=== PATIENT | male | born 2000 | race Caucasian/White ===

== ENCOUNTER 2020-04-14 18:17 | Observation (INO) ==
[2020-04-14] MEDS ORDERED: ONDANSETRON INJ 2 MG/ML 2 ML VIAL IV STA (20:01)
[2020-04-14] MEDS ORDERED: SODIUM CHLORIDE 0.9% 1000ML 1,000 ML IV ONE (20:01)
[2020-04-14 20:15] LABS: Basophils # (auto) 0.01 K/uL (0-0.2); Basophils % (auto) 0.1 %; Eosinophils # (auto) 0.18 K/uL (0-0.5); Eosinophils % (auto) 2.3 %; Hematocrit (blood only) 38.3 % (42-52); Hemoglobin 13.6 g/dL (14.0-18.0); Immature Granulocytes # (auto) 0.03 K/uL (0.00-0.02); Immature Granulocytes % (auto) 0.4 %; Lymphocytes # (auto) 1.47 K/uL (1.2-3.4); Lymphocytes % (auto) 19.2 %; Mean Corpuscular Hemoglobin 31.3 pg (25-34); Mean Corpuscular Hgb Conc 35.5 g/dL (32-36); Mean Platelet Volume 9.3 fL (7.4-10.4); Monocytes # (auto) 1.05 K/uL (0.11-0.59); Monocytes % (auto) 13.7 %; Neutrophils # (auto) 4.93 K/uL (1.4-6.5); Neutrophils % (auto) 64.3 %; Platelet Count 208 K/uL (130-400); RDW Standard Deviation 38.6 fL (36.4-46.3); Red Blood Count 4.35 M/uL (4.7-6.1); White Blood Count 7.67 K/uL (4.8-10.8)
--- NOTE | 2020-04-14 20:34 | CT Scan Report ---
CT head/brain wo con CLINICAL HISTORY: 19 years-old Male with seizure. Acute seizure like activity TECHNIQUE: Multiple axial CT images of the head were obtained without contrast. A dose lowering tech nique was utilized adhering to the principles of ALARA. CT DOSE: 767.83 mGy.cm COMPARISON: None. FINDINGS: No acute intracranial hemorrhage, midline shift, intracranial mass, hydrocephalus, territorial ischem ia or abnormal extra-axial collection. The calvarium is intact. The paranasal sinuses, mastoid air cells, and middle ear cavities are clear . IMPRESSION: No acute intracranial abnormality. ACT 112: Negative or not required by law. The above report was generated using voice recognition software. It may contain grammatical, syntax o r spelling errors. Electronically signed by: Riley Cheung M.D. 04/14/2020 8:33 PM
[2020-04-14 20:35] LABS: Albumin Level 4.3 gm/dl (3.4-5.0); BUN Creatinine Ratio 10.2 (10-20); Bilirubin Direct 0.2 mg/dl (0-0.2); Calcium 9.1 mg/dl (8.5-10.1); Creatinine Clr Calc Pharmacy 71.5 ml/min; Est GFR (African American) 55.1; Est GFR (Non-African American) 47.5; Potassium 3.8 mmol/L (3.5-5.1)
[2020-04-14 20:38] LABS: Bilirubin,Total 0.7 mg/dl (0.2-1)
[2020-04-14] MEDS: SODIUM CHLORIDE 0.9% 1000ML 1,000 ML IV SCH (22:26)
[2020-04-15 00:28] LABS: Amphetamines+Metham, Urine Neg (Neg); Barbiturates, Urine Neg (Neg); Benzodiazepine, Urine Neg (Neg); Cocaine, Urine Neg (Neg); MDMA (Ecstacy), Urine Neg (Neg); Methadone, Urine Neg (Neg); Opiate, Urine Neg (Neg); Phencyclidine, Urine Neg (Neg)
--- NOTE | 2020-04-15 01:15 | Emergency Department Note ---
History of Present Illness General Chief complaint: Nausea Stated complaint: HAD SEIZURE OVER THE WEEKEND, HAS HAD NAUSEA SINCE Time Seen by Provider: 04/14/20 19:54 History of Present Illness Provider complaint: Nausea and vomiting Onset (ago): day(s) 3 Location: abdomen Severity: mild Associated symptoms: + nausea/vomiting; no chest pain, no fever/chills, no headaches and no rash 19-year-old male presents emergency department for nausea and vomiting. Patient states he has a history of seizure disorder and is on Trileptal. He states that Monday he had 2 seizures. He denies hitting his head. He denies any excessive alcohol intake. Denies any illicit drug use. Patient states that since he had seizures she has been feeling increasingly nauseous. Girlfriend states that the patient is vomited 20 times since Monday. Patient denies any hematemesis, coffee-ground emesis, bilious vomiting, hematochezia, melena, dysuria, hematuria, chest pain, difficulty breathing, loss of taste or smell, or loss of consciousness. Patient states he was diagnosed with a seizure disorder earlier this year and sees a neurologist in [place] which is where he is from. Home Medications Home Medications Medication Instructions Recorded Confirmed Type fluoxetine 30 mg PO HS 09/03/19 04/14/20 History atomoxetine 60 mg PO HS 04/14/20 04/14/20 History oxcarbazepine 600 mg PO BID 04/14/20 04/14/20 History Allergies Allergy/AdvReac Type Severity Reaction Status Date / Time No Known Allergies Allergy Verified 04/14/20 21:56 Past Med/Surg History Medical History Seizure Surgical History No pertinent past surgical history Family History Other No pertinent family history in first degree relatives Social History Smoking Status: Current some day smoker Preferred Language: Djiboutian Feels Safe at Home: Yes Review of Systems A total of 10 systems reviewed and were otherwise negative Physical Exam Vital Signs Vital Signs - 24 hr 04/14/20 18:24 04/14/20 20:44 04/14/20 22:22 Temperature 36.4 C L Temperature Source Oral Pulse Rate 78 Pulse Rate [Apical] 63 59 L Respiratory Rate 20 18 18 Respiratory Effort / Characteristics Non-Labored Non-Labored Non-Labored Respiratory Depth Normal Normal Normal Blood Pressure 121/66 Blood Pressure [Left Arm] 143/63 H 139/92 Blood Pressure Mean 84 Blood Pressure Mean [Left Arm] 89 107 Blood Pressure Position [Left Arm] Pulse Oximetry 100 100 100 Oxygen Delivery Method Room Air Room Air Room Air Sepsis Recent Fever Within 48 Hours No Sepsis New/Unexplained Change in Mental Status No Sepsis Action Taken by Nursing No Action Required 04/14/20 23:01 04/14/20 23:30 04/15/20 00:29 Temperature Temperature Source Pulse Rate Pulse Rate [Apical] 58 L 58 L 61 Respiratory Rate 18 14 20 Respiratory Effort / Characteristics Non-Labored Spontaneous Non-Labored Respiratory Depth Normal Normal Blood Pressure Blood Pressure [Left Arm] 129/83 129/83 135/70 Blood Pressure Mean Blood Pressure Mean [Left Arm] 98 98 91 Blood Pressure Position [Left Arm] Sitting Sitting Pulse Oximetry 100 100 100 Oxygen Delivery Method Room Air Room Air Room Air Sepsis Recent Fever Within 48 Hours Sepsis New/Unexplained Change in Mental Status Sepsis Action Taken by Nursing Physical Exam GENERAL: He is oriented to person, place, and time. He appears well-developed and well-nourished. He does not appear distressed. HENT: Exam performed. - Head: Normocephalic and atraumatic. - Right Ear: External ear normal. No mastoid tenderness. - Left Ear: External ear normal. No mastoid tenderness. - Mouth/Throat: The oropharynx is clear and moist. No trismus in the jaw. No dental abscesses or uvula swelling. No oropharyngeal exudate or tonsillar ab scesses. EYES: Conjunctivae and EOM are normal. Pupils are equal, round, and reactive to light. Right eye exhibits no discharge. Left eye exhibits no discharge. No scleral icterus. NECK: Normal range of motion. Neck supple. No JVD present. No spinous process tenderness present. No carotid bruit present. No rigidity. No tracheal deviation and normal range of motion present. No Brudzinski's sign and no Kernig's sign noted. CV: Normal rate, regular rhythm, normal heart sounds and intact distal pulses. There is no peripheral edema. Palpable radial pulses bue. PULM/CHEST: Effort normal and breath sounds normal. No respiratory distress. No stridor. He has no wheezes. He has no rales. - Chest Wall: He exhibits no tenderness. ABD: The abdomen is soft. Bowel sounds are normal. He has no distension. No mass is present. There is no tenderness. There is no rebound, no guarding, no Eid's sign and no tenderness at McBurney's point. Rovsig negative. MUSC/SKEL: Normal range of motion. There is no peripheral edema, tenderness or deformity. LYMPH: No cervical adenopathy. NEURO: He is alert and oriented to person, place, and time. He has normal strength. No cranial nerve deficit or sensory deficit. Coordination and gait normal. GCS eye subscore is 4. GCS verbal subscore is 5. GCS motor subscore is 6. Cerebellar tests wnl. SKIN: Skin is warm and dry. He is not diaphoretic. PSYCH: He has a normal mood and affect. Behavior is normal. Judgment and thought content normal. Course Course 1953: The patient was evaluated in room B3. A complete history and physical exam was performed. 2217: Vital signs stable. Imaging within normal limits. Labs show acute kidney injury. Patient will be admitted to the [facility] service. Dr. Godoy notified. Administered Medications Sodium Chloride (Nss 1000ml) 1,000 mls @ 125 mls/hr IV .Q8H CHARLENE Stop: 05/14/20 22:29 Last Admin: 04/14/20 22:26 Dose: 125 mls/hr Documented by: [id number] Discontinued Medications Sodium Chloride (Nss 1000ml) 1,000 mls @ 999 mls/hr IV .Q1H1M ONE Stop: 04/14/20 21:01 Last Infusion: 04/14/20 21:15 Dose: 0 mls/hr Documented by: [id number] Admin: 04/14/20 20:15 Dose: 999 mls/hr Documented by: [id number] Ondansetron HCl (Ondansetron Inj 2 Mg/Ml 2 Ml Vial) 4 mg IV NOW STA Stop: 04/14/20 20:02 Last Admin: 04/14/20 20:15 Dose: 4 mg Documented by: [id number] Ondansetron HCl (Ondansetron Inj 2 Mg/Ml 2 Ml Vial) Confirm Administered Dose 4 mg .ROUTE .STK-MED ONE Stop: 04/15/20 01:17 Last Admin: 04/15/20 01:18 Dose: 4 mg Documented by: Medical Decision Making Laboratory Data Result diagrams: 04/14/20 20:09 04/14/20 20:09 Lab Results 04/14/20 04/14/20 04/15/20 Range/Units 20:09 20:09 00:03 WBC 7.67 (4.8-10.8) K/uL RBC 4.35 L (4.7-6.1) M/uL Hgb 13.6 L (14.0-18.0) g/dL Hct 38.3 L (42-52) % MCV 88.0 (80-100) fL MCH 31.3 (25-34) pg MCHC 35.5 (32-36) g/dL RDW Std Deviation 38.6 (36.4-46.3) fL RDW Coeff of Radha 12.0 (11.5-14.5) % Plt Count 208 (130-400) K/uL MPV 9.3 (7.4-10.4) fL Immature Gran % (Auto) 0.4 % Neut % (Auto) 64.3 % Lymph % (Auto) 19.2 % [place] % (Auto) 13.7 % Eos % (Auto) 2.3 % Baso % (Auto) 0.1 % Neut # (Auto) 4.93 (1.4-6.5) K/uL Lymph # (Auto) 1.47 (1.2-3.4) K/uL [place] # (Auto) 1.05 H (0.11-0.59) K/uL Eos # (Auto) 0.18 (0-0.5) K/uL Baso # (Auto) 0.01 (0-0.2) K/uL Immature Gran # (Auto) 0.03 H (0.00-0.02) K/uL Sodium 140 (136-145) mmol/L Potassium 3.8 (3.5-5.1) mmol/L Chloride 108 H (98-107) mmol/L Carbon Dioxide 24 (21-32) mmol/L Anion Gap 8.0 (3-11) BUN 20 H (7-18) mg/dl Creatinine 1.97 H (0.6-1.4) mg/dl Est Cr Clr Drug Dosing 71.5 ml/min Est GFR ( Amer) 55.1 Est GFR (Non-Af Amer) 47.5 BUN/Creatinine Ratio 10.2 (10-20) Glucose 91 (70-99) mg/dl Calcium 9.1 (8.5-10.1) mg/dl Total Bilirubin 0.7 (0.2-1) mg/dl Direct Bilirubin 0.2 (0-0.2) mg/dl AST 19 (15-37) U/L ALT 21 (12-78) U/L Alkaline Phosphatase 57 (45-117) U/L Total Creatine Kinase 334 H (39-308) U/L Total Protein 8.0 (6.4-8.2) gm/dl Albumin 4.3 (3.4-5.0) gm/dl Lipase 109 (73-393) U/L Urine Opiates Screen Neg (Neg) Ur Methadone, Qual Neg (Neg) Urine Barbiturates Neg (Neg) Ur Phencyclidine (PCP) Neg (Neg) U Amphetamin/Meth Scrn Neg (Neg) MDMA (Ecstasy) Screen Neg (Neg) U Benzodiazepines Scrn Neg (Neg) Ur Cocaine Metabolite Neg (Neg) U Marijuana (THC) Screen Pos H (Neg) Imaging Data Radiologist's Impression: CT head/brain wo con CLINICAL HISTORY: 19 years-old Male with seizure. Acute seizure like activity TECHNIQUE: Multiple axial CT images of the head were obtained without contrast. A dose lowering technique was utilized adhering to the principles of ALARA. CT DOSE: 767.83 mGy.cm COMPARISON: None. FINDINGS: No acute intracranial hemorrhage, midline shift, intracranial mass, hydrocephalus, territorial ischemia or abnormal extra-axial collection. The calvarium is intact. The paranasal sinuses, mastoid air cells, and middle ear cavities are clear. IMPRESSION: No acute intracranial abnormality. ACT 112: Negative or not required by law. The above report was generated using voice recognition software. It may contain grammatical, syntax or spelling errors. Electronically signed by: Riley Cheung M.D. 04/14/2020 8:33 PM Dictated: 04/14/202031 Transcribed: 04/14/202031 [facility] Narrative Vital signs stable. Imaging within normal limits. Labs show acute kidney injury. Patient will be admitted to the [facility] service. Dr. Godoy notified. Impression & Plan DANIEL (acute kidney injury), Seizure Discharge Plan Visit Data Chief Complaint: Nausea Stated Complaint: HAD SEIZURE OVER THE WEEKEND, HAS HAD NAUSEA SINCE ED Provider: Ze He Discharge Problem: DANIEL (acute kidney injury), Seizure Patient Disposition: Being Evaluated by Hospitalist Forms Stand Alone Forms: My [facility] Prescriptions Prescriptions: No Action fluoxetine 10 mg Capsule 30 mg PO HS RF: 0 oxcarbazepine 600 mg tablet 600 mg PO BID RF: 0 atomoxetine 60 mg capsule 60 mg PO HS RF: 0 Referrals Referrals: [place] [Primary Care Provider] -
[2020-04-15] MEDS ORDERED: ONDANSETRON INJ 2 MG/ML 2 ML VIAL ONE (01:16)
[2020-04-15] MEDS ORDERED: ONDANSETRON INJ 2 MG/ML 2 ML VIAL IV PRN (01:35)
[2020-04-15] MEDS: OXcarbazepine 150 MG TABLET PO SCH ×3 (03:17→20:42)
--- NOTE | 2020-04-15 03:19 | History & Physical Report ---
Date of Service April 15, 2020 The patient was seen and examined on 04/14/2020 Assessment & Plan (1) Seizure: Seizure disorder/2 recent seizure episodes/depression- CT of head negative. Order MRI brain and EEG. Continue Trileptal, fluoxetine and atomoxetine Consult neurology Present on Admission?: Yes (2) Nausea & vomiting: Differential includes viral, acute kidney injury and cannabinoid hyperemesis syndrome associated with positive marijuana screen on UDS. Treat symptomatically with Zofran, and continue IV fluids as noted. Present on Admission?: Yes (3) DANIEL (acute kidney injury): Creatinine 1.97 upon admission, with previous recorded 1.10. Continue rehydration with NSS at 125 mL's per hour. Follow serial BMP, Magnesium and CK levels Present on Admission?: Yes (4) Rhabdomyolysis: CK mildly elevated at 334, likely in recovery mode from more significant rhabdomyolysis. Follow serially Present on Admission?: Yes (5) Depression: See above Present on Admission?: Yes Admission and Anticipated Discharge Date Admission Date: April 14, 2020 History of Present Illness Chief Complaint: The patient presents to the emergency department with complaint of intractable nausea and vomiting ever since he had seizure activity 2 days ago. [facility] The patient is a 19-year-old [employer] student with a past medical history of seizure disorder and depression, who presents to the emergency department with complaint of 2 seizures 2 days ago, and since that time has had persistent nausea and vomiting. He denies any recent travels or sick exposures, including to [employer] His father who is present in the room, reports that he does not th ink his son takes his medications as directed. He was diagnosed with seizure disorder earlier this year, reports having had testing done at his home in [place], including normal CT scan and MRI of brain. Allergies Allergy/AdvReac Type Severity Reaction Status Date / Time No Known Allergies Allergy Verified 04/14/20 21:56 Home Medications Home Medications Medication Instructions Recorded Confirmed Type fluoxetine 30 mg PO HS 09/03/19 04/14/20 History atomoxetine 60 mg PO HS 04/14/20 04/14/20 History oxcarbazepine 600 mg PO BID 04/14/20 04/14/20 History Past Med/Surg History Medical History Seizure Surgical History No pertinent past surgical history Family History Other No pertinent family history in first degree relatives Social History Smoking Status: Never smoker Hx Alcohol Use: Yes Hx Substance Use: Yes Preferred Language: [place] Communication Ability: Effective 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 Beliefs That Will Affect Care: None Current Living Situation: Other Current Living Situation Comment: roomates Feels Safe at Home: Yes Review of Systems Review of Systems: The patient denies chest pain, palpitations, shortness of breath, dyspnea on exertion, cough, lower extremity swelling, sore throat, fevers, chills, sweats, diarrhea , constipation, abdominal pain, pelvic pain, blood in urine or stool, dysuria, urinary frequency or urgency, lightheadedness, dizziness, headache, rash, abnormal bruising or bleeding, imbalance, focal or generalized weakness, numbness or tingling in arms or legs, generalized arthralgias or myalgias, back or neck pain, or night sweats. The review of systems is otherwise negative other than for that already noted above, and at least 10 systems have been reviewed. Physical Exam Physical Exam: The patient is awake, alert and oriented 3, well developed and well nourished, normocephalic and atraumatic, lying in bed and in no acute distress. HEENT--PERRL, EOMI, mucous membranes and oropharynx normal. Neck--supple. No JVD. No bruits. Thyroid normal, trachea midline, no adenopathy. Heart--normal S1 and S2. No murmurs, rubs or gallops. Lungs--clear bilaterally, no respiratory distress, no accessory muscle use. Abdomen--normal bowel sounds and soft. Nontender. Nondistended. Extremities--no cyanosis or clubbing. No edema. Dermatologic--normal skin turgor, normal color, no abnormal lymph nodes, no rash. Neurologic--cranial nerves II through XII grossly intact. Rheumatologic--normal range of motion. Psychiatric--normal affect. Results & Data Results & Data ([facility]) Vital Signs (Past 12 Hours) Vital Signs Temp Pulse Pulse Resp BP BP Pulse Ox 04/15/20 02:27 59 L 04/15/20 01:30 98.4 F 55 L 16 124/78 100 04/15/20 01:24 61 18 124/75 100 04/15/20 00:29 61 20 135/70 100 04/14/20 23:30 58 L 14 129/83 100 04/14/20 23:01 58 L 18 129/83 100 04/14/20 22:22 59 L 18 139/92 100 04/14/20 20:44 63 18 143/63 H 100 04/14/20 18:24 97.5 F L 78 20 121/66 100 Laboratory Results Laboratory Results WBC 7.67 K/uL (4.8-10.8) 04/14/20 20:09 RBC 4.35 M/uL (4.7-6.1) L 04/14/20 20:09 Hgb 13.6 g/dL (14.0-18.0) L 04/14/20 20:09 Hct 38.3 % (42-52) L 04/14/20 20:09 MCV 88.0 fL (80-100) 04/14/20 20:09 MCH 31.3 pg (25-34) 04/14/20 20:09 MCHC 35.5 g/dL (32-36) 04/14/20 20:09 RDW Std Deviation 38.6 fL (36.4-46.3) 04/14/20 20:09 RDW Coeff of Radha 12.0 % (11.5-14.5) 04/14/20 20:09 Plt Count 208 K/uL (130-400) 04/14/20 20:09 MPV 9.3 fL (7.4-10.4) 04/14/20 20:09 Immature Gran % (Auto) 0.4 % 04/14/20 20:09 Neut % (Auto) 64.3 % 04/14/20 20:09 Lymph % (Auto) 19.2 % 04/14/20 20:09 [place] % (Auto) 13.7 % 04/14/20 20:09 Eos % (Auto) 2.3 % 04/14/20 20:09 Baso % (Auto) 0.1 % 04/14/20 20:09 Neut # (Auto) 4.93 K/uL (1.4-6.5) 04/14/20 20:09 Lymph # (Auto) 1.47 K/uL (1.2-3.4) 04/14/20 20:09 [place] # (Auto) 1.05 K/uL (0.11-0.59) H 04/14/20 20:09 Eos # (Auto) 0.18 K/uL (0-0.5) 04/14/20 20:09 Baso # (Auto) 0.01 K/uL (0-0.2) 04/14/20 20:09 Immature Gran # (Auto) 0.03 K/uL (0.00-0.02) H 04/14/20 20:09 Sodium 140 mmol/L (136-145) 04/14/20 20:09 Potassium 3.8 mmol/L (3.5-5.1) 04/14/20 20:09 Chloride 108 mmol/L (98-107) H 04/14/20 20:09 Carbon Dioxide 24 mmol/L (21-32) 04/14/20 20:09 Anion Gap 8.0 (3-11) 04/14/20 20:09 BUN 20 mg/dl (7-18) H 04/14/20 20:09 Creatinine 1.97 mg/dl (0.6-1.4) H 04/14/20 20:09 Est Cr Clr Drug Dosing 71.5 ml/min 04/14/20 20:09 Est GFR ( Amer) 55.1 04/14/20 20:09 Est GFR (Non-Af Amer) 47.5 04/14/20 20:09 BUN/Creatinine Ratio 10.2 (10-20) 04/14/20 20:09 Glucose 91 mg/dl (70-99) 04/14/20 20:09 Calcium 9.1 mg/dl (8.5-10.1) 04/14/20 20:09 Total Bilirubin 0.7 mg/dl (0.2-1) 04/14/20 20:09 Direct Bilirubin 0.2 mg/dl (0-0.2) 04/14/20 20:09 AST 19 U/L (15-37) 04/14/20 20:09 ALT 21 U/L (12-78) 04/14/20 20:09 Alkaline Phosphatase 57 U/L (45-117) 04/14/20 20:09 Total Creatine Kinase 334 U/L (39-308) H 04/14/20 20:09 Total Protein 8.0 gm/dl (6.4-8.2) 04/14/20 20:09 Albumin 4.3 gm/dl (3.4-5.0) 04/14/20 20:09 Lipase 109 U/L (73-393) 04/14/20 20:09 Urine Opiates Screen Neg (Neg) 04/15/20 00:03 Ur Methadone, Qual Neg (Neg) 04/15/20 00:03 Urine Barbiturates Neg (Neg) 04/15/20 00:03 Ur Phencyclidine (PCP) Neg (Neg) 04/15/20 00:03 U Amphetamin/Meth Scrn Neg (Neg) 04/15/20 00:03 MDMA (Ecstasy) Screen Neg (Neg) 04/15/20 00:03 U Benzodiazepines Scrn Neg (Neg) 04/15/20 00:03 Ur Cocaine Metabolite Neg (Neg) 04/15/20 00:03 U Marijuana (THC) Screen Pos (Neg) H 04/15/20 00:03 Diagnostic Findings [place] [phone] CT Scan Report Patient: SHIKHA MAE DAdkolton Date: 04/14/20 MR#: [id number]: [address] Acct ID:[id number]: Date: 2000[facility] Zip: [place] [address] Age: 19Location: ED Sex: MRoom/Bed: Att Phy:Diagnosis: HAD SEIZURE OVER THE WEEKEND, HAS HAD NAUSEA SINCE [facility]: [facility] John Cheung Admit Phy: Ordering Phy: Ze eH MD cc: ~ CT head/brain wo con CLINICAL HISTORY: 19 years-old Male with seizure. Acute seizure like activity TECHNIQUE: Multiple axial CT images of the head were obtained without contrast. A dose lowering technique was utilized adhering to the principles of ALARA. CT DOSE: 767.83 mGy.cm COMPARISON: None. FINDINGS: No acute intracranial hemorrhage, midline shift, intracranial mass, hydro cephalus, territorial ischemia or abnormal extra-axial collection. The calvarium is intact. The paranasal sinuses, mastoid air cells, and middle ear cavities are clear. IMPRESSION: No acute intracranial abnormality. ACT 112: Negative or not required by law. The above report was generated using voice recognition software. It may contain grammatical, syntax or spelling errors. Electronically signed by: Riley Cheung M.D. 04/14/2020 8:33 PM Dictated: 04/14/202031 Transcribed: 04/14/202031 Code Status & VTE Plan Code Status Full code VTE Prophylaxis Plan VTE Prophylaxis will be ordered: Yes PG Care Time/CCT Total # of Minutes Spent Total Time Spent with Patient: Total time spent is greater than 50% in coordination of care (as documented) at patient's floor/unit and/or counseling patient: Coding Level of Care Code 06864 OBS Care - Level 3 Diagnoses Seizure R56.9 Nausea & vomiting R11.2 DANIEL (acute kidney injury) N17.9 Rhabdomyolysis M62.82 Depression F32.9
[2020-04-15] MEDS ORDERED: Nursing to Pharmacy Communication SCH (06:15)
--- NOTE | 2020-04-15 07:27 | Magnetic Resonance Report ---
MRI OF THE BRAIN WITHOUT IV CONTRAST CLINICAL HISTORY: Seizure. COMPARISON STUDY: CT of the brain dated 04/14/2020. TECHNIQUE: MRI of the brain was performed utilizing various T1 and T2-weighted sequences in the axial , sagittal, and coronal planes. IV contrast was not administered for this examination. The examinatio n is performed using the seizure protocol. FINDINGS: Brain parenchyma: The brain parenchyma is normal in appearance. There is no hemorrhage or mass effect . There is no restricted diffusion to suggest acute ischemia. Edward-white matter differentiation is pr eserved. No extra-axial fluid collection is seen. The cerebellar tonsils are normal in configuration. The hippocampi are normal and symmetric. Ventricles, sulci, and cisterns: Normal in configuration. Pituitary and sella: Unremarkable. Intracranial vasculature: Normal flow voids are maintained at the skull base. Orbits: The bony orbits are grossly intact. Orbital contents are normal in appearance. Sinuses and mastoids: Clear. Calvarium: Unremarkable. Cervical cord: Partially visualized cervical spinal cord is normal in morphology and signal intensity . IMPRESSION: No acute intracranial abnormality. ACT 112: Negative or not required by law. Electronically signed by: Michael Herrera M.D. 04/15/2020 7:26 AM
[2020-04-15 08:18] LABS: BUN Creatinine Ratio 9.9 (10-20); Calcium 8.7 mg/dl (8.5-10.1); Creatinine Clr Calc Pharmacy 79.2 ml/min; Est GFR (African American) 64.4; Est GFR (Non-African American) 55.6; Magnesium 2.4 mg/dl (1.8-2.4); Potassium 3.8 mmol/L (3.5-5.1)
[2020-04-15] MEDS: SODIUM CHLORIDE 0.9% 1000ML 1,000 ML IV SCH ×3 (08:38→22:48)
--- NOTE | 2020-04-15 13:26 | Neurology Consultation ---
Date of Consultation April 15, 2020 Assessment & Plan (1) Seizure: Jimmy Contreras is a 19 yo man w/ PMH of PNES and OCD/ADHD who p/t [facility] after breakthrough seizure in the setting of GI illness. # Breakthrough seizure: in the setting of GI illness and marijuana/alcohol usage, as well as sleep deprivation and missed doses of medication. Given that father admits that he has a diagnosis of PNES, would recommend that he go to the EMU on an outpatient basis to confirm diagnosis and r/o frontal lobe epilepsy as these types of seizures can be bizarre and often occur out of sleep. - trileptal level pending - change to keppra 750mg bid with 1g IV loading dose this evening - decrease trileptal to 300mg bid while admitted, and then discontinue on discharge - follow up in neurology clinic in 4 weeks with JERO De Los Santos, to check in - referral to EMU to have definitive diagnosis made (for spell classification, pt prefers [facility]) Thank you for this interesting consult. Plan of care discussed with primary team. Please call or text with questions. (2) DANIEL (acute kidney injury): (3) Nausea & vomiting: History of Present Illness Attending Physician: Bubba Prajapati DO History of Present Illness Jimmy Contreras is a 19 yo man w/ PMH of PNES and OCD/ADHD who p/t [facility] after breakthrough seizure in the setting of GI illness. In the ED, pt afebrile, BP 121/66, HR 78, RR 20, satting 100% on room air. Labs notable for WBC 7.67, Hb 13.6, Plts 208, Na/K WNL, CL 108, BUN 20, Cr 1.97, glucose 91, LFTs WNL, CK 334, lipase 109, UDS positive for marijuana. Imaging independently reviewed. CTH shows no hemorrhage or hypodensity. MRI brain w/o contrast shows no tumor, acute or chronic stroke, Chiari malformation or hippocampal atrophy. On examination today, he reports that he was in his normal state of health until Monday evening when his girlfriend noticed that he had 2 seizure-like events out of sleep. She told him that he made some strange sounds shock around in the bed. He reports that he may have bit his tongue but denied loss of bowel or bladder. His father was in the room and said that starting in August 2019, he started to have similar events at night that would occur about once per month where his body would stiffen for approximately 1 minute sometimes associated with tongue biting, no residual loss of bowel or bladder. He reports that he had both an MRI and EEG performed when he was living in [place], and was told by his neurologist down there that he has nonepileptic events. He continued to have further events, so neurologist started him on Trileptal for mood stabilization and to try to help with these events. He does note that he has been having some level of sleep deprivation, endorses smoking marijuana but would not say how frequently, and reports drinking 4+ drinks nightly on most weekends including the night of the event. He does note that he also has been skipping on Trileptal doses because it has been causing him headaches. Allergies Allergy/AdvReac Type Severity Reaction Status Date / Time No Known Allergies Allergy Verified 04/14/20 21:56 Home Medications Home Medications Medication Instructions Recorded Confirmed Type fluoxetine 30 mg PO HS 09/03/19 04/14/20 History atomoxetine 60 mg PO HS 04/14/20 04/14/20 History oxcarbazepine 600 mg PO BID 04/14/20 04/14/20 History Patient History Medical History Depression Seizure Surgical History No pertinent past surgical history Family History Other No pertinent family history in first degree relatives Social History Smoking Status: Never smoker Hx Alcohol Use: Yes Hx Substance Use: Yes Preferred Language: Swedish Communication Ability: Effective Peripheral Equipment Operator Required: No Beliefs That Will Affect Care: None Current Living Situation: Other Current Living Situation Comment: evon Feels Safe at Home: Yes Review of Systems Review of Systems: 14 point review of systems completed and negative except as in HPI. Exam (Neuro) Physical Exam: General Exam: GEN: NAD, sitting in chair. HEENT: No conjunctival injection, no rhinorrhea. CV: RRR, no peripheral edema PULM: Nonlabored respirations on room air. Neuro Exam: MS: Awake and Alert. Oriented to person, place, and date. Speech fluent and appropriate without dysarthria or paraphasic errors. Language intact including naming, comprehension, repetition. Cognition and memory grossly intact. Attention intact. No neglect. CN: Visual rodriguez full. No extinction to double simultaneous stimuli. No optic disc edema on fundoscopic exam. PERRLA OU. EOMI without nystagmus. Facial sensation intact to LT. Facial muscles full and symmetric. Hearing intact to conversation. Uvula midline with symmetric palatal elevation. Shoulder shrug normal. Tongue midline. MOTOR: Normal bulk and tone. No pronator drift. BUE strength 5/5 at deltoids, biceps, triceps, wrist flexors and extensors, and hand grasp bilaterally. BLE strength 5/5 at iliopsoas, hamstrings, quadriceps, tibialis anterior, and gastrocnemius bilaterally. REFLEXES: 2+ at biceps, triceps, brachioradialis, patella and Achilles bilaterally. Flexor plantar responses bilaterally. SENSORY: Intact to LT without extinction to double simultaneous stimuli. Vibration and pinprick intact throughout. COORDINATION: No dysmetria or ataxia on [id number] and [id number] bilaterally. Normal Nany bilaterally. GAIT: Normal gait and arm swing. Normal Romberg. Results & Data ([facility]) Vital Signs (Past 12 Hours) Vital Signs Temp Pulse Pulse Resp BP BP Pulse Ox 04/15/20 11:06 36.9 C 62 18 101/64 98 04/15/20 08:19 36.6 C 55 L 18 105/66 100 04/15/20 07:49 61 04/15/20 02:27 59 L 04/15/20 01:30 36.9 C 55 L 16 124/78 100 04/15/20 01:24 61 18 124/75 100 PG Care Time/CCT Total # of Minutes Spent Total Time Spent with Patient: Total time spent is greater than 50% in coordination of care (as documented) at patient's floor/unit and/or counseling patient: Coding Level of Care Code 98674 Office/OBS Consult Lvl 5 Diagnoses Seizure R56.9 DANIEL (acute kidney injury) N17.9 Nausea & vomiting R11.2
--- NOTE | 2020-04-15 16:41 | XRay Report ---
XR chest 2V PA/lateral HISTORY: 19 years-old Male rule out pneumonia, had breakthrough seizure acute shortness of breath COMPARISON: None TECHNIQUE: PA and lateral views of the chest FINDINGS: Cardiomediastinal and hilar silhouettes are within normal limits. No pneumothorax, pleural effusion, airspace consolidation or overt pulmonary edema. Mild left hemidiaphragmatic elevation. Mild convex r ight curvature of the midthoracic spine. Bones appear grossly intact. IMPRESSION: No acute process. ACT 112: Negative or not required by law. The above report was generated using voice recognition software. It may contain grammatical, syntax o r spelling errors. Electronically signed by: Riley Cheung M.D. 04/15/2020 4:39 PM
--- NOTE | 2020-04-15 17:02 | Hospitalist Progress Note ---
Date of Service April 15, 2020 Assessment & Plan (1) Seizure: Seizure disorder/2 recent seizure episodes/depression- CT of head negative. MRI brain negative will obtain trileptal level but DANIEL may make it higher than it actually is appreciate neurology consult looke for infectious cause, no pneumonia on CXR, awaiting UA Continue Trileptal, fluoxetine and atomoxetine will discuss possible d/c to home tomorrow with neurology this will depend on renal function (2) Nausea & vomiting: Differential includes viral, acute kidney injury and cannabinoid hyperemesis syndrome associated with positive marijuana screen on UDS. better today, eating more Zofran PRN (3) DANIEL (acute kidney injury): Creatinine 1.97 upon admission, with previous recorded 1.10. Cr down to 1.7 today, making urine, he denies noticing a dark discoloration repeat BMP in the morning, continue NSS at 125cc/hr (4) Rhabdomyolysis: CK mildly elevated at 334, likely in recovery mode from more significant rhabdomyolysis. CK down into the 200's, no need to repeat he admitted that his thighs were very tender after the seizures (5) Depression: See above Admission and Anticipated Discharge Date Admission Date: April 14, 2020 Subjective patient resting in bed, says he has less nausea today, eating a little bit he says that he missed one, maybe two trileptal medications his father concerned he is missing more, he says that his bottle is quite full, should have less tablets if taking consistently he said he had a seizure Monday night/Monday morning, when he woke up in the morning his thighs hurt a lot his girlfriend described the episode as full body tonic clonic discussed with Dr. Samaniego, will look for infection as trigger CXR clear, still waiting for UA he admits to smoking marijuana, he says it is only on the weekends reviewed labs and imaging MRI brain normal Cr down to 1.7 from 1.9 and CPK is down to normal level he says he did not notice dark discoloration of urine Review of Systems Review of Systems: All systems reviewed & are unremarkable except as noted in Subjective Physical Exam Constitutional: WD/WN, vitals as above Eyes: PERRL, conjunctivae normal, anicteric sclerae ENMT: external ear and nose normal, oropharynx normal Neck: trachea midline, no thyromegaly Respiratory: normal respiratory effort, lungs clear to auscultation Cardiovascular: RRR, no murmur, no edema Gastrointestinal (Abdomen): normal bowel sounds, soft, nontender, no hepatosplenomegaly Musculoskeletal: no cyanosis or clubbing, extremities motor strength 5/5 Skin: no rashes, warm and dry Neurologic: patellar DTR's 2+ bilat, sensation intact and PERRL, EOMI, accommodation nl, no face palsy, no dysarthria Psychiatric: Orientation: alert and oriented x 3 Speech: + abnormal rate/rhythm/volume of speech (slow responses) Affect: + flat affect Lymphatic: no cervical or axillary lymphadenopathy Results & Data Results & Data ([facility]) Vital Signs (Past 12 Hours) Vital Signs Temp Pulse Pulse Resp BP Pulse Ox 04/15/20 16:00 36.8 C 66 18 125/73 98 04/15/20 11:06 36.9 C 62 18 101/64 98 04/15/20 08:19 36.6 C 55 L 18 105/66 100 04/15/20 07:49 61 Laboratory Results Laboratory Results - last 24 hr 04/14/20 04/14/20 04/15/20 20:09 20:09 00:03 WBC 7.67 RBC 4.35 L Hgb 13.6 L Hct 38.3 L MCV 88.0 MCH 31.3 MCHC 35.5 RDW Std Deviation 38.6 RDW Coeff of Radha 12.0 Plt Count 208 MPV 9.3 Immature Gran % (Auto) 0.4 Neut % (Auto) 64.3 Lymph % (Auto) 19.2 [place] % (Auto) 13.7 Eos % (Auto) 2.3 Baso % (Auto) 0.1 Neut # (Auto) 4.93 Lymph # (Auto) 1.47 [place] # (Auto) 1.05 H Eos # (Auto) 0.18 Baso # (Auto) 0.01 Immature Gran # (Auto) 0.03 H Sodium 140 Potassium 3.8 Chloride 108 H Carbon Dioxide 24 Anion Gap 8.0 BUN 20 H Creatinine 1.97 H Est Cr Clr Drug Dosing 71.5 Est GFR ( Amer) 55.1 Est GFR (Non-Af Amer) 47.5 BUN/Creatinine Ratio 10.2 Glucose 91 Calcium 9.1 Magnesium Total Bilirubin 0.7 Direct Bilirubin 0.2 AST 19 ALT 21 Alkaline Phosphatase 57 Total Creatine Kinase 334 H Total Protein 8.0 Albumin 4.3 Lipase 109 Urine Opiates Screen Neg Ur Methadone, Qual Neg Urine Barbiturates Neg 10-Hydroxycarbazepine Ur Phencyclidine (PCP) Neg U Amphetamin/Meth Scrn Neg MDMA (Ecstasy) Screen Neg U Benzodiazepines Scrn Neg Ur Cocaine Metabolite Neg U Marijuana (THC) Screen Pos H U Marijuana THC Carboxy Drug Screen Comment 04/15/20 04/15/20 04/15/20 00:03 07:32 12:59 WBC RBC Hgb Hct MCV MCH MCHC RDW Std Deviation RDW Coeff of Radha Plt Count MPV Immature Gran % (Auto) Neut % (Auto) Lymph % (Auto) [place] % (Auto) Eos % (Auto) Baso % (Auto) Neut # (Auto) Lymph # (Auto) [place] # (Auto) Eos # (Auto) Baso # (Auto) Immature Gran # (Auto) Sodium 143 Potassium 3.8 Chloride 110 H Carbon Dioxide 24 Anion Gap 9.0 BUN 17 Creatinine 1.73 H Est Cr Clr Drug Dosing 79.2 Est GFR ( Amer) 64.4 Est GFR (Non-Af Amer) 55.6 BUN/Creatinine Ratio 9.9 L Glucose 88 Calcium 8.7 Magnesium 2.4 Total Bilirubin Direct Bilirubin AST ALT Alkaline Phosphatase Total Creatine Kinase 254 Total Protein Albumin Lipase Urine Opiates Screen Ur Methadone, Qual Urine Barbiturates 10-Hydroxycarbazepine Pending Ur Phencyclidine (PCP) U Amphetamin/Meth Scrn MDMA (Ecstasy) Screen U Benzodiazepines Scrn Ur Cocaine Metabolite U Marijuana (THC) Screen U Marijuana THC Carboxy Pending Drug Screen Comment Pending Medications Administered Current Inpatient Medications Atomoxetine HCl (Atomoxetine Hcl 25 Mg Capsule) 50 mg PO HS CHARLENE Stop: 05/15/20 20:59 Fluoxetine HCl (Fluoxetine Hcl 10 Mg Cap) 30 mg PO HS CHARLENE Stop: 05/15/20 20:59 Sodium Chloride (Nss 1000ml) 1,000 mls @ 125 mls/hr IV .Q8H CHARLENE Stop: 05/14/20 22:29 Last Admin: 04/15/20 16:31 Dose: 125 mls/hr Documented by: Ondansetron HCl (Ondansetron Inj 2 Mg/Ml 2 Ml Vial) 4 mg IV Q6H PRN PRN Reason: Nausea Stop: 05/15/20 01:34 Oxcarbazepine (Oxcarbazepine 150 Mg Tablet) 600 mg PO BID CHARLENE Stop: 05/15/20 01:34 Last Admin: 04/15/20 08:40 Dose: 600 mg Documented by: PG Care Time/CCT Total # of Minutes Spent Total Time Spent: 32 Total Time Spent with Patient: Total time spent is greater than 50% in c oordination of care (as documented) at patient's floor/unit and/or counseling patient: 15 minutes spent with patient and his father 17 minutes spent reviewed record, labs, imaging, discussing with Dr. Samaniego Coding Level of Care Code 56084 Subseq Hosp Care Lvl 3 Diagnoses Seizure R56.9 Nausea & vomiting R11.2 DANIEL (acute kidney injury) N17.9 Rhabdomyolysis M62.82 Depression F32.9
[2020-04-15] MEDS ORDERED: levETIRAcetam 1,000 MG in 0.9 % SODIUM CHLORIDE 100 ML IV ONE (18:30)
[2020-04-15] MEDS ORDERED: ATOMOXETINE HCL 25 MG CAPSULE PO SCH (21:00)
[2020-04-15] MEDS ORDERED: FLUOXETINE HCL 10 MG CAP PO SCH (21:00)
[2020-04-15 23:08] LABS: Appearance Urine Clear (Clear); Bilirubin Urine Negative (Negative); Blood Urine Negative (Negative); Color Urine Yellow; Glucose Urine UA Negative (Negative); Ketones Urine 1+ (Negative); Leukocyte Esterase Urine Negative (Negative); Nitrite Urine Negative (Negative); Protein Urine Negative (Negative); Specific Gravity Urine 1.009 (1.000-1.030); Urobilinogen Urine Negative (Negative)
[2020-04-16] MEDS: SODIUM CHLORIDE 0.9% 1000ML 1,000 ML IV SCH (06:00)
[2020-04-16 07:31] LABS: BUN Creatinine Ratio 8.6 (10-20); Calcium 8.6 mg/dl (8.5-10.1); Creatinine Clr Calc Pharmacy 97.2 ml/min; Est GFR (African American) 82.5; Est GFR (Non-African American) 71.2; Potassium 3.5 mmol/L (3.5-5.1)
[2020-04-16] MEDS: OXcarbazepine 150 MG TABLET PO SCH (08:23)
[2020-04-16] MEDS ORDERED: levETIRAcetam 250 MG TAB PO SCH ×2 (09:00→15:30)
[2020-04-16] MEDS ORDERED: ONDANSETRON 4 MG OD TAB PO STA (10:56)
--- NOTE | 2020-04-16 15:01 | Discharge Summary ---
Date of Service April 16, 2020 Admission HPI Per Admitting Provider The patient is a 19-year-old [employer] student with a past medical history of seizure disorder and depression, who presents to the emergency department with complaint of 2 seizures 2 days ago, and since that time has had persistent nausea and vomiting. He denies any recent travels or sick exposures, including to COVID-19. His father who is present in the room, reports that he does not think his son takes his medications as directed. He was diagnosed with seizure disorder earlier this year, reports having had testing done at his home in [place], including normal CT scan and MRI of brain. Principal Diagnosis Seizure activity, breakthrough seizure Discharge Exam Constitutional WD/WN, vitals as above Eyes PERRL, conjunctivae normal, anicteric sclerae ENMT external ear and nose normal, oropharynx normal Neck trachea midline, no thyromegaly Respiratory normal respiratory effort, lungs clear to auscultation Cardiovascular RRR, no murmur, no edema Gastrointestinal (Abdomen) normal bowel sounds, soft, nontender, no hepatosplenomegaly Musculoskeletal no cyanosis or clubbing, extremities motor strength 5/5 Skin no rashes, warm and dry Neurologic patellar DTR's 2+ bilat, sensation intact and PERRL, EOMI, accommodation nl, no face palsy, no dysarthria Psychiatric Orientation: alert and oriented x 3 Speech: + abnormal rate/rhythm/volume of speech (slow responses) Affect: + flat affect Lymphatic no cervical or axillary lymphadenopathy Discharge Data Allergies Allergy/AdvReac Type Severity Reaction Status Date / Time No Known Allergies Allergy Verified 04/14/20 21:56 Consultations 04/14/20 22:17 ED Decision to Admit Stat 04/15/20 01:35 Consult Case Management - Discharge Planning Routine Consult Neurology Routine Ordered Studies 04/14/20 20:01 CT head/brain wo con Stat 04/15/20 01:35 MR brain wo con Urgent Hospital Course (1) Seizure: Seizure disorder/2 recent seizure episodes/depression- CT of head negative. MRI brain negative seizure likely triggered by alcohol, marijuana use, sleep deprivation and inconsistent use of his Trileptal Dr. Samaniego recommended changing Trileptal to Keppra 750mg BID, started while in the hospital she also recommends getting patient set up for EMU at [facility] to determine type of seizures, these have been happening about once a month since September 2019 no seizures while here, will discharge to home continue Keppra follow up with neurology in one month specific instructions to abstain from alcohol and marijuana discussed that alcohol and drugs can lower seizure threshold and that being impaired makes him less likely to take his prescribed medications discussed with his father at the bedside (2) Nausea & vomiting: Differential includes viral, acute kidney injury and cannabinoid hyperemesis syndrome associated with positive marijuana screen on UDS. ate his entire lunch and dinner on 04/15 some nausea and small emesis on 04/16 of just some stomach acid in the morning ate better at lunch discussed with him further, his girlfriend also had 1-2 days of vomiting at the same time he did earlier in the week, raises possibility of a viral gastroenteritis or food poisoning follow bland diet, stay well hydrated, prescribed zofran PRN (3) DANIEL (acute kidney injury): Creatinine 1.97 upon admission, with previous recorded 1.10. Cr down to 1.4 today, making urine, he denies noticing a dark discoloration no further fluids needed, kidneys recovering well (4) Rhabdomyolysis: CK mildly elevated at 334, likely in recovery mode from more significant rhabdomyolysis. CK down into the 200's on 04/15, no need to repeat he admitted that his thighs were very tender after the seizures (5) Depression: continue Fluoxetine counseled him on not using alcohol or marijuana Total Time Total Time Spent Total Time Spent (In Minutes): 40 minutes Total Time Includes: Examination of the Patient, Discharge Planning, Medication Reconciliation, Communication With Other Providers (Dr. Samaniego) and Other (father at the bedside) Discharge Plan Discharge Items Patient Disposition: Home - Self-Care Reason For Visit: SEIZURE, INTRACTABLE N/V, DANIEL Discharge Diagnosis: Seizure activity Acute kidney injury Rhabdomyolysis Condition on Discharge: Good Goals: continue on Keppra, stop Trileptal follow up with referral to Epilepsy Monitoring Unit at [facility] Activity: Resume your previous activity Non-emergency contact: Primary Care Provider and Neurologist Call non-emergency contact if: you have any medication questions and your symptoms worsen Follow-up/Referrals: Joellen Hawkins PA-C [Physician Correctional Supervisor Lieutenant] - 05/14/20 9:30 am (4 weeks, hospital follow up. Your appointment will be with Dr Samaniego. If you need to change this appointment, please call [phone].) [facility] [Primary Care Provider] - (one week) Diet: Regular Addtl Attending Provider Instructions: Medications: - KEPPRA: 750mg twice a day for seizure prevention - ZOFRAN: take as needed for nausea Seizure activity likely triggered by poor compliance with Trileptal, sleep deprivation, alcohol and marijuana use normal MRI of the brain no signs of infection, no electrolyte abnormalities Dr. Samaniego recommends changing from Trileptal to Keppra 750mg BID script [facility] Acute kidney injury, mild rhabdomyolysis likely caused by seizures, then worsened by dehydration kidney function down to near normal, Cr improved to 1.4 from 1.9 on admission treated with IV fluids normal electrolytes and CK (muscle enzyme) down to normal today use Zofran to help with nausea stay well hydrated with water and drinks with electrolytes Dr. Samaniego recommends referral to Epilepsy Monitoring Unit at [facility] RECOMMEND THAT YOU AVOID ALCOHOL AND MARIJUANA INDEFINITELY WITH YOUR SEIZURE DISORDER alcohol and other drugs can lower seizure threshold also, if you are impaired you are more likely to forget to take medications which could also increase risk of seizures Pending Studies at Discharge: No Stand-Alone Forms: My [facility], Work/School Release (Inpt), Smoking Cessation Medications and DC Order Prescriptions: New levetiracetam 750 mg tablet 750 mg PO BID 30 Days Qty: 60 RF: 3 ondansetron HCl [Zofran] 4 mg tablet 4 mg PO Q8H PRN (Reason: nausea and vomiting) 5 Days Qty: 14 RF: 0 Continued fluoxetine 10 mg Capsule 30 mg PO HS RF: 0 atomoxetine 60 mg capsule 60 mg PO HS RF: 0 Discontinued oxcarbazepine 600 mg tablet 600 mg PO BID RF: 0 Discharge Orders: Discharge Order (Routine); Ordered 04/16/20 Ordered By: Bubba Prajapati Admission Data Admit Date/Time: 04/14/20 23:42 Attending Provider: Bubba Prajapati Admit Provider: Tye Cordero Primary Care Provider: [facility] Other Providers: Tye Cordero ; [place] Other Interventions: Discharge Summary Assessment (RN) Last Done: 04/16/20 15:51 Coding Level of Care Code D/C Day Management >30 mins Diagnoses Seizure R56.9 Nausea & vomiting R11.2 DANIEL (acute kidney injury) N17.9 Rhabdomyolysis M62.82 Depression F32.9
[2020-04-16] MEDS ORDERED: Nursing to Pharmacy Communication SCH (15:15)
--- NOTE | 2020-04-16 15:18 | Neurology Progress Note ---
Date of Service April 16, 2020 Assessment & Plan (1) Seizure: Jimmy Contreras is a 19 yo man w/ PMH of PNES and OCD/ADHD who p/t [facility] after breakthrough seizure in the setting of GI illness. # Breakthrough seizure: in the setting of GI illness and marijuana/alcohol usage, as well as sleep deprivation and missed doses of medication. Given that father admits that he has a diagnosis of PNES, would recommend that he go to the EMU on an outpatient basis to confirm diagnosis and r/o frontal lobe epilepsy as these types of seizures can be bizarre and often occur out of sleep. - trileptal level pending - continue keppra 750mg bid - decrease trileptal to 300mg bid while admitted, and then discontinue on discharge (last dose evening of 04/16) - follow up in neurology clinic in 3-4 weeks with JERO De Los Santos, to check in - referral to EMU to have definitive diagnosis made (for spell classification, pt prefers [facility], will place in outpatient orders) Thank you for this interesting consult. Plan of care discussed with primary team. Please call or text with questions. (2) DANIEL (acute kidney injury): (3) Nausea & vomiting: Admission and Anticipated Discharge Date Admission Date: April 14, 2020 Subjective NAEs overnight. Had one episode of vomiting this morning, none since starting zofran prn. No further seizure like events. Discussed with father that there is minimal chance of interaction between keppra and prozac (can hypothetically cause hyponatremia which may lead to a seizure, but this would have been much more likely with trileptal). Discussed monitoring mood while on keppra. Review of Systems Review of Systems: 14 point review of systems completed and negative except as in HPI. Results & Data ([facility]) Vital Signs (Past 12 Hours) Vital Signs Temp Pulse Pulse Resp BP Pulse Ox 04/16/20 11:24 36.4 C L 51 L 18 129/83 100 04/16/20 07:33 36.6 C 49 L 16 105/63 97 04/16/20 06:58 50 L Exam (Neuro) Physical Exam: General Exam: GEN: NAD, sitting in chair. HEENT: No conjunctival injection, no rhinorrhea. CV: RRR, no peripheral edema PULM: Nonlabored respirations on room air. Neuro Exam: MS: Awake and Alert. Oriented to person, place, and date. Speech fluent and appropriate without dysarthria or paraphasic errors. Language intact including naming, comprehension, repetition. Cognition and memory grossly intact. Attention intact. No neglect. CN: Visual rodriguez full. No extinction to double simultaneous stimuli. No optic disc edema on fundoscopic exam. PERRLA OU. EOMI without nystagmus. Facial sensation intact to LT. Facial muscles full and symmetric. Hearing intact to conversation. Uvula midline with symmetric palatal elevation. Shoulder shrug normal. Tongue midline. MOTOR: Normal bulk and tone. No pronator drift. BUE strength 5/5 at deltoids, biceps, triceps, wrist flexors and extensors, and hand grasp bilaterally. BLE strength 5/5 at iliopsoas, hamstrings, quadriceps, tibialis anterior, and gastrocnemius bilaterally. REFLEXES: 2+ at biceps, triceps, brachioradialis, patella and Achilles bilaterally. Flexor plantar responses bilaterally. SENSORY: Intact to LT without extinction to double simultaneous stimuli. Vibration and pinprick intact throughout. COORDINATION: No dysmetria or ataxia on [id number]-lvcc and ogdo-ip-rdrn bilaterally. Normal Nany bilaterally. GAIT: Normal gait and arm swing. Normal Romberg. PG Care Time/CCT Total # of Minutes Spent Total Time Spent with Patient: Total time spent is greater than 50% in coordination of care (as documented) at patient's floor/unit and/or counseling patient: Coding Level of Care Code 19716 Subseq Hosp Care Lvl 3 Diagnoses Seizure R56.9 DANIEL (acute kidney injury) N17.9 Nausea & vomiting R11.2
[2020-04-16] MEDS ORDERED: ONDANSETRON 4 MG OD TAB PO PRN (15:20)
[2020-04-16] MEDS ORDERED: ONDANSETRON 4 MG OD TAB PO SCH (15:20)
[2020-04-17 01:41] LABS: Marijuana Quant, GCMS Urine 596 ng/mL (<5)
== END 2020-04-16 16:15 | disposition home or self-care (01) ==
LOC: ED 18:17 → 2N 18:17 → SUATTDRO 23:42 → 2N 04-15 01:24

== ENCOUNTER 2020-05-18 17:59 | Inpatient (IN) ==
[2020-05-18] MEDS ORDERED: DEXAMETHASONE SOD INJ 10 MG/ML VIAL IV ONE (18:42)
[2020-05-18] MEDS ORDERED: KETOROLAC 30 MG/ML VIAL IV STA (18:42)
[2020-05-18] MEDS ORDERED: SODIUM CHLORIDE 0.9% 1000ML 1,000 ML IV SCH (18:45)
[2020-05-18 18:49] LABS: Basophils # (auto) 0.01 K/uL (0-0.2); Basophils % (auto) 0.1 %; Eosinophils # (auto) 0.11 K/uL (0-0.5); Eosinophils % (auto) 1.1 %; Hematocrit (blood only) 37.1 % (42-52); Hemoglobin 13.3 g/dL (14.0-18.0); Immature Granulocytes # (auto) 0.04 K/uL (0.00-0.02); Immature Granulocytes % (auto) 0.4 %; Lymphocytes # (auto) 1.22 K/uL (1.2-3.4); Lymphocytes % (auto) 12.7 %; Mean Corpuscular Hemoglobin 31.2 pg (25-34); Mean Corpuscular Hgb Conc 35.8 g/dL (32-36); Mean Corpuscular Volume 87.1 fL (80-100); Mean Platelet Volume 9.2 fL (7.4-10.4); Monocytes # (auto) 1.06 K/uL (0.11-0.59); Neutrophils % (auto) 74.7 %; Platelet Count 204 K/uL (130-400); RDW Coefficient of Variation 11.9 % (11.5-14.5); RDW Standard Deviation 37.8 fL (36.4-46.3); Red Blood Count 4.26 M/uL (4.7-6.1); White Blood Count 9.64 K/uL (4.8-10.8)
--- NOTE | 2020-05-18 18:49 | Emergency Department Note ---
History of Present Illness General Chief complaint: Seizure Stated complaint: SEIZURE Time Seen by Provider: 05/18/20 18:32 Source: patient and family Mode of arrival: ambulatory Limitations: no limitations History of Present Illness Provider complaint: Swollen tongue, possible dehydration Maximum Pain Intensity: 9 This is a 20-year-old male who presents to the ED with a chief complaint of difficulty swallowing and discomfort with swallowing because of a swollen tongue from having a seizure and biting his tongue yesterday. The patient had not taken his seizure medicine over the weekend and had a seizure yesterday. He was started on his medication last night after he was seen and he has been taking his medication. The reason that he came to the hospital today was because the mother visited today. She states that he has not been eating much and has not had much to drink because of his tongue being swollen and is having difficulty with talking and discomfort in his tongue. The patient has no additional complaints at this time. He does have a known history of seizure disorder. Home Medications Home Medications Medication Instructions Recorded Confirmed Type fluoxetine 30 mg PO HS 09/03/19 05/18/20 History atomoxetine 60 mg PO HS 04/14/20 05/18/20 History levetiracetam 750 mg PO BID 30 Days #60 tab 04/16/20 05/18/20 Rx multivitamin 1 tab PO DAILY 05/18/20 05/18/20 History Allergies Allergy/AdvReac Type Severity Reaction Status Date / Time No Known Allergies Allergy Verified 05/18/20 18:52 Past Med/Surg History Medical History DANIEL (acute kidney injury) Depression Seizure Surgical History No pertinent past surgical history Family History Other No pertinent family history in first degree relatives Social History Smoking Status: Never smoker Hx Alcohol Use: Yes Hx Substance Use: Yes Preferred Language: [place]ese Communication Ability: Effective 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 Beliefs That Will Affect Care: None Current Living Situation: Other Current Living Situation Comment: roomates Feels Safe at Home: Yes Assistive Devices: None Review of Systems A total of 10 systems reviewed and were otherwise negative Physical Exam Vital Signs Vital Signs - 24 hr 05/18/20 18:13 05/18/20 18:33 05/18/20 19:30 Temperature 36.6 C Temperature Source Oral Pulse Rate 98 H 76 80 Pulse Rate [Apical] Pulse Rate from SpO2 Sensor Respiratory Rate 18 16 15 Respiratory Effort / Characteristics Non-Labored Spontaneous Respiratory Depth Normal Respiratory Pattern Regular Blood Pressure 126/83 117/74 Blood Pressure [Right Arm] Blood Pressure Mean 97 81 Blood Pressure Mean [Right Arm] Pulse Oximetry 100 99 Oxygen Delivery Method Room Air Sepsis Recent Fever Within 48 Hours No Sepsis New/Unexplained Change in Mental Status No Sepsis Action Taken by Nursing No Action Required 05/18/20 19:55 05/18/20 19:56 05/18/20 20:00 Temperature Temperature Source Pulse Rate 91 H 83 Pulse Rate [Apical] 90 Pulse Rate from SpO2 Sensor 97 H 82 Respiratory Rate 17 18 12 Respiratory Effort / Characteristics Respiratory Depth Normal Respiratory Pattern Blood Pressure 116/78 114/72 Blood Pressure [Right Arm] 116/78 Blood Pressure Mean 91 81 Blood Pressure Mean [Right Arm] 90 Pulse Oximetry 100 98 97 Oxygen Delivery Method Sepsis Recent Fever Within 48 Hours Sepsis New/Unexplained Change in Mental Status Sepsis Action Taken by Nursing 05/18/20 20:30 Temperature Temperature Source Pulse Rate 69 Pulse Rate [Apical] Pulse Rate from SpO2 Sensor 71 Respiratory Rate 15 Respiratory Effort / Characteristics Respiratory Depth Respiratory Pattern Blood Pressure 113/77 Blood Pressure [Right Arm] Blood Pressure Mean 89 Blood Pressure Mean [Right Arm] Pulse Oximetry 99 Oxygen Delivery Method Sepsis Recent Fever Within 48 Hours Sepsis New/Unexplained Change in Mental Status Sepsis Action Taken by Nursing CONSTITUTIONAL/VITAL SIGNS: Reviewed / noted above. GENERAL: Non-toxic in appearance. INTEGUMENTARY: Warm, dry, and [place]. HEAD: Normocephalic. EYES: without scleral icterus or trauma. ENT/OROPHARYNX: clear and moist. The patient has a moderately swollen tongue related to ecchymosis and bruising. He is not having any airway issues. He is able to speak in an understandable manner. There is no lacerations to the tongue itself. No trismus. LYMPHADENOPATHY/NECK: Is supple without lymphadenopathy or meningismus. RESPIRATORY: Lungs clear and equal. CARDIOVASCULAR: Regular rate and rhythm. GI/ABDOMEN: Soft and nontender. No organomegaly or pulsatile mass. No rebound or guarding. Normal bowel sounds. EXTREMITIES: Warm and well perfused. BACK: No CVA tenderness. NEUROLOGICAL: Intact without focal deficits. PSYCHIATRIC: normal affect. MUSCULOSKELETAL: Normally developed with good muscle tone. TRIAGE NURSING DOCUMENTATION REVIEWED. Course Administered Medications Discontinued Medications Dexamethasone (Dexamethasone Sod Inj 10 Mg/Ml Vial) 10 mg IV NOW ONE Stop: 05/18/20 18:43 Last Admin: 05/18/20 18:52 Dose: 10 mg Documented by: [id number] Sodium Chloride (Nss 1000ml) 1,000 mls @ 999 mls/hr IV .Q1H1M CHARLENE Stop: 05/18/20 19:45 Last Infusion: 05/18/20 19:53 Dose: 0 mls/hr Documented by: [id number] Admin: 05/18/20 18:52 Dose: 999 mls/hr Documented by: [id number] Ketorolac Tromethamine (Ketorolac 30 Mg/Ml Vial) 30 mg IV NOW STA Stop: 05/18/20 18:43 Last Admin: 05/18/20 18:52 Dose: 30 mg Documented by: [id number] Medical Decision Making Differential Diagnosis Differential includes dehydration, tongue contusion, airway issue, infection, dysphagia, pain Medical Records Attestation: I reviewed the patient's medical records. Home Medications Current Medication List: was personally reviewed by me Laboratory Data Attestation: I reviewed the patient's lab results. Result diagrams: 05/18/20 18:41 05/18/20 18:41 Lab Results 05/18/20 05/18/20 Range/Units 18:41 18:41 WBC 9.64 (4.8-10.8) K/uL RBC 4.26 L (4.7-6.1) M/uL Hgb 13.3 L (14.0-18.0) g/dL Hct 37.1 L (42-52) % MCV 87.1 (80-100) fL MCH 31.2 (25-34) pg MCHC 35.8 (32-36) g/dL RDW Std Deviation 37.8 (36.4-46.3) fL RDW Coeff of Radha 11.9 (11.5-14.5) % Plt Count 204 (130-400) K/uL MPV 9.2 (7.4-10.4) fL Immature Gran % (Auto) 0.4 % Neut % (Auto) 74.7 % Lymph % (Auto) 12.7 % [place] % (Auto) 11.0 % Eos % (Auto) 1.1 % Baso % (Auto) 0.1 % Neut # (Auto) 7.20 H (1.4-6.5) K/uL Lymph # (Auto) 1.22 (1.2-3.4) K/uL [place] # (Auto) 1.06 H (0.11-0.59) K/uL Eos # (Auto) 0.11 (0-0.5) K/uL Baso # (Auto) 0.01 (0-0.2) K/uL Immature Gran # (Auto) 0.04 H (0.00-0.02) K/uL Sodium 137 (136-145) mmol/L Potassium 3.1 L (3.5-5.1) mmol/L Chloride 106 (98-107) mmol/L Carbon Dioxide 21 (21-32) mmol/L Anion Gap 10.0 (3-11) BUN 28 H (7-18) mg/dl Creatinine 3.58 H (0.6-1.4) mg/dl Est Cr Clr Drug Dosing 39.0 ml/min Est GFR ( Amer) 26.6 Est GFR (Non-Af Amer) 22.9 BUN/Creatinine Ratio 7.8 L (10-20) Glucose 86 (70-99) mg/dl Calcium 8.7 (8.5-10.1) mg/dl MDM Narrative Patient presents primarily with an issue with regards to tongue swelling after a seizure yesterday. His tongue is contused and swollen. It does not appear to be causing any airway issues. He states that he has no difficulty with breathing. He has discomfort and some difficulty with swallowing. His mother was concerned he might be dehydrated. The patient CBC was unremarkable. Chemistry panel shows elevated BUN and creatinine of 28 and 3.58. Potassium is 3.1. The patient did receive IV fluids during his stay. He was given some IV dexamethasone for his tongue swelling. He was also given some IV Toradol for discomfort prior to knowing his creatinine was elevated. He will be seen by the hospitalist for further inpatient evaluation and care. His total CK currently is 781. Impression & Plan Acute renal failure, Elevated CK, Contusion Discharge Plan Visit Data Chief Complaint: Seizure Stated Complaint: SEIZURE ED Provider: Bud Cabrera Discharge Problem: Acute renal failure, Elevated CK, Contusion Patient Disposition: Being Evaluated by Hospitalist Forms Stand Alone Forms: [facility] Prescriptions Prescriptions: No Action fluoxetine 10 mg Capsule 30 mg PO HS RF: 0 atomoxetine 60 mg capsule 60 mg PO HS RF: 0 levetiracetam 750 mg tablet 750 mg PO BID 30 Days Qty: 60 RF: 3 multivitamin Tablet 1 tab PO DAILY RF: 0 Referrals Referrals: [facility] [Primary Care Provider] -
[2020-05-18 19:13] LABS: BUN Creatinine Ratio 7.8 (10-20); Calcium 8.7 mg/dl (8.5-10.1); Est GFR (African American) 26.6; Est GFR (Non-African American) 22.9; Potassium 3.1 mmol/L (3.5-5.1)
[2020-05-18] MEDS ORDERED: ONDANSETRON INJ 2 MG/ML 2 ML VIAL IV STA (21:18)
[2020-05-18] MEDS ORDERED: LACTATED RINGER'S 1,000 ML IV SCH (22:00)
[2020-05-18 22:03] LABS: Appearance Urine Clear (Clear); Bilirubin Urine Negative (Negative); Blood Urine Negative (Negative); Color Urine Yellow; Glucose Urine UA Negative (Negative); Ketones Urine 1+ (Negative); Leukocyte Esterase Urine Negative (Negative); Nitrite Urine Negative (Negative); Protein Urine Negative (Negative); Specific Gravity Urine 1.014 (1.000-1.030); Urobilinogen Urine Negative (Negative)
--- NOTE | 2020-05-18 22:22 | History & Physical Report ---
Date of Service May 18, 2020 Assessment & Plan (1) Seizure: Mr. Contreras is a 20 yo male with h/o unspecified seizure disorder who presented to [facility] ED on 05/18 for a swollen tongue and difficulty swallowing 2/2 tongue-bite due to generalized seizure. Seizure-like activity - seizure character prolonged >30 minutes, unknown if eyes are open during event, but seems to have GTC seizure character with lack of responsiveness and post-ictal phase - previous negative seizure work-up with neuroimaging and EEG without epileptiform changes - BMP showing electrolytes WNL, thus electrolyte imbalance unlikely to have caused seizures - elevated Mg 3.5 likely 2/2 acute renal failure as mentioned below, but increased Mg more likely to cause diminished deep tendon reflexes which is not evident in this patient - unlikely to cause seizures - however, patient's persistent post-ictal state and associated fatigue may be partially attributable to increased Mg - UDS negative apart from MJ so unlikely to be due to drugs - most likely ddx at this time is unspecified seizure disorder vs PNES; cannot exclude PNES at this time given unconvincing past seizure workup, questionable length of seizure events and psychiatric history - Neurology consulted - seizure precautions - continue home dose Keppra 750 mg PO BID, first dose tonight as patient only take AM dose today - continue to trend electrolytes - Of note, patient is scheduled for 5-day inpatient EEG at [facility] [place] on 07/19/2020 for further evaluation of seizure-like activity Acute renal failure - previous history of elevated Cr 1.91 and mildly elevated CK 334 in 03/2020 - currently has Cr 3.58, BUN:Cr ratio 7.8, suggesting intrinsic renal pathology - of note, FENa is 0.7 which suggests pre-renal pathology - given recent history of decreased PO intake for less than 1 day, unlikely to be ATN - although CK is elevated at 781, unlikely that Rhabdomyolysis would solely explain elevated Cr - UDS negative besides MJ as stated above, and current medications are unlikely to precipitate DANIEL, so unlikely that nephrotoxic drugs are contributing to this - ordered urine eosinophils and microscopy to further evaluate for type of intrinsic kidney injury - ordered Renal US to evaluate for renal artery stenosis - Nephrology consulted - patient received 1L NSS so far; will give 1L LR to cover for pre-renal pathology given mixed picture and recent dehydration - will continue to trend BMP, Mg, Phos tomorrow morning Tongue Contusion - secondary to seizure - received Decadron x1 for swelling - saltwater rinse and PRN Tylenol for pain/swelling - full liquid diet given solid restrictions due to swelling - ST eval ordered for swallow eval Elevated CK - 781, in the setting of recent prolonged seizure-like activity - likely due to seizures - continue to trend tomorrow AM Hypermagnesemia - 3.5 as mentioned above - in the setting of acute renal failure, likely secondary to this - patient does not have diminished deep tendon reflexes, would only expect this at levels >4 - continue to trend tomorrow AM Depression - continue Fluoxetine 30 mg PO QHS ADHD - continue Atomoxetine 60 mg PO QHS FEN/GI: full liquid DVT Prophylaxis: SCDs Code Status: Full Code Disposition: med/surg (2) Acute renal failure: (3) Elevated CK: (4) Hypermagnesemia: (5) Contusion: (6) Depression: (7) ADHD: Admission and Anticipated Discharge Date Admission Date: 05/18/2020 History of Present Illness Chief Complaint: seizure, swollen tongue Primary Care Provider: [facility] Mr. Contreras is a 20 yo male with h/o unspecified seizure disorder who presented to [facility] ED on 05/18 for a swollen tongue and difficulty swallowing 2/2 tongue- bite due to generalized seizure. Patient's mother is in the room with him and provided most of the history. Per mother, the patient was taking Trileptal from 09/2019-03/2020 for unspecified seizure disorder but was intermittently non- compliant due to headaches and mood changes, and he was admitted at [facility] in 03/2020 for three days due to breakthrough seizures (2 events in one day). Saw Dr. Samaniego (Neuro) during that hospitalization and Trileptal was changed to Keppra 750 mg PO BID for increased compliance and to avoid side effects. Was also found to have elevated Cr 1.97 (with <10:1 BUN:Cr) and mildly elevated CK of 334 - DANIEL was thought to be 2/2 rhabdo due to seizures and greatly improved during hospitalization. Patient was fully compliant with Keppra until this past weekend when he forgot the medication on a roadtrip for his birthday weekend. Patient also reports having 3 drinks during the weekend celebrations as well as some MJ but denies other alcohol or drug use. On Monday afternoon (05/17) the patient reportedly had seizure in the car - 15 minutes of bilateral flexed arm shaking followed by 20 minutes of leg shaking; patient was reportedly unresponsive during this time and severely bit his tongue but no loss of continence - unknown if eyes were opened or closed during the event. Patient reports that he does not remember this event. Patient fell asleep after 35 minutes of seizing and woke up after several hours, just as he and his girlfriend were arriving in [place]. He was taken to [facility] ED and was re-started on Keppra. After discharge from ED, he was taken to his girlfriend's apartment and reportedly slept soundly without other seizure events. Throughout the day today he remained in a post-ictal state - fatigued, slow movements, slow speech, and difficulty eating due to swollen tongue. No further seizure events. In the ED, patient received Decadron 10 IV x1 for tongue swelling, Toradol 30 IV x1 for tongue pain, NSS 1L for dehydration and Zofran 4mg IV x1 for nausea. PMHx: Seizures: reportedly started 1 year ago with girlfriend noticing that he "shakes" in bed in the middle of the night, then had 2 seizures during the day which prompted full neuro eval with negative CT/MRI and 3-day EEG without epileptiform activity. Seizures usually have similar character to the most recent seizure described above. Remainder of seizure history descirbed in HPI. 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 Doing well in school. Smokes MJ almost every day. Drinks socially - several shots per week. Denies other drug use. Allergies Allergy/AdvReac Type Severity Reaction Status Date / Time No Known Allergies Allergy Verified 05/18/20 18:52 Home Medications Home Medications Medication Instructions Recorded Confirmed Type fluoxetine 30 mg PO HS 09/03/19 05/18/20 History atomoxetine 60 mg PO HS 04/14/20 05/18/20 History levetiracetam 750 mg PO BID 30 Days #60 tab 04/16/20 05/18/20 Rx multivitamin 1 tab PO DAILY 05/18/20 05/18/20 History Past Med/Surg History Medical History (Updated 05/18/20 @ 23:08 by Zuhair Monaco MD) ADHD DANIEL (acute kidney injury) Depression Seizure Surgical History No pertinent past surgical history Family History Other No pertinent family history in first degree relatives Social History Smoking Status: Never smoker Second Hand Exposure: No; Do You Dip or Chew Tobacco: No; Hx Alcohol Use: Yes Alcohol type: beer, wine, hard liquor and other Hx Substance Use: Yes Last Used Substance: Days (ago) Last Used Substance Other:: 05/17/2020 Substance Use Type Other:: see medication list Preferred Language: Angolan Communication Ability: Effective 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 Beliefs That Will Affect Care: None Current Living Situation: Other Current Living Situation Comment: pt is a student and has two roomates Feels Safe at Home: Yes Safety Concerns: Feels Safe At This Time Assistive Devices: None Review of Systems Constitutional: no fever and no chills Eyes: no worsening vision Ear, Nose, Mouth, Throat: no hearing loss Respiratory: no cough and no dyspnea Cardiovascular: no chest pain, no palpitations and no edema Gastrointestinal: + nausea and + diarrhea/loose stools; no abdominal pain and no vomiting Neurologic: + seizure-like activity and + syncope; no localized weakness Psychiatric: + behavioral changes Physical Exam Constitutional: appears fatigued, ill Eyes: PERRL, conjunctivae normal, anicteric sclerae Respiratory: normal respiratory effort, lungs clear to auscultation Cardiovascular: RRR, no murmur, no edema Gastrointestinal (Abdomen): normal bowel sounds, soft, nontender, no hepatosplenomegaly Musculoskeletal: no cyanosis or clubbing, extremities motor strength 5/5 Skin: no rashes, warm and dry Neurologic: patellar DTR's 2+ bilat, sensation intact and PERRL, EOMI, accommodation nl, no face palsy, no dysarthria normal touch/pain/proprioception, CN's II-XI intact bilaterally, deep tendon reflexes 2+ bilaterally and moves all extremities; no focal motor deficits Motor/Sensory: no tremor Psychiatric: A+Ox3, euthymic affect Results & Data Results & Data ([facility]) Vital Signs (Past 12 Hours) Vital Signs Temp Pulse Pulse Resp BP BP Pulse Ox 05/18/20 21:32 95 H 18 125/78 100 05/18/20 20:30 69 15 113/77 99 05/18/20 20:00 83 12 114/72 97 05/18/20 19:56 90 18 116/78 98 05/18/20 19:55 91 H 17 116/78 100 05/18/20 19:30 80 15 05/18/20 18:33 76 16 117/74 99 05/18/20 18:13 36.6 C 98 H 18 126/83 100 Code Status & VTE Plan VTE Prophylaxis Plan VTE Prophylaxis will be ordered: Yes Supervising Physician Co-Signing Physician Notes Patient seen and examined, chart reviewed, case discussed wt Dr. Monaco and I agree with his assessment and plan as documented above. Briefly, patient is a 20yo C male with history of Depression and ADHD, fairly new diagnosis of tonic- clonic seizures presenting after witnessed seizure at home. Patient found to have DANIEL On exam patient is afebrile, HD stable, NAD HEENT - NC/AT, tongue is swollen and ecchymotic - prohibits complete closure of the mouth, +dysarthria secondary to swollen tongue. Airway is preserved Heart - +S1/S2, regular, no m/r/g Lungs - CTA Abd - +BS, soft, NT/ND Ext - No edema Neuro - No deficits Labs reviewed Assessment/Plan - 20yo C male presenting after witnessed seizure, +tongue swelling and pain as well as DANIEL -DANIEL - etiology uncertain - concern for some prerenal contributing +ketones in urine, ?rhabdomyolysis. Workup as above with FeNA, urine cytodiagnostics/microscopy, eosinophils and renal ultrasound. Gentle IVF, monitor renal function and electrolytes. Nephrology consultation appreciated. -Seizures - etiology uncertain at this time - patient has had extensive workup which has thus far been unrevealing. This latest episode most likely secondary to medication nonadherance. Continue Keppra. Seizure precautions. Neurology consultation appreciated. -Remainder of plan as above Resident Activity Tracking Resident Involvement: Resident Care Provided Care Provided: Adult Hospital Medicine (1) Acute renal failure Acute renal failure type: unspecified Qualified Code(s): N17.9 - Acute kidney failure, unspecified (2) Contusion Contusion area: head Contusion of head detail: other part of head Encounter type: initial encounter Qualified Code(s): S00.83XA - Contusion of other part of head, initial encounter
[2020-05-18 22:28] LABS: Amphetamines+Metham, Urine Neg (Neg); Barbiturates, Urine Neg (Neg); Benzodiazepine, Urine Neg (Neg); Cocaine, Urine Neg (Neg); MDMA (Ecstacy), Urine Neg (Neg); Methadone, Urine Neg (Neg); Opiate, Urine Neg (Neg); Phencyclidine, Urine Neg (Neg)
[2020-05-18] MEDS ORDERED: POTASSIUM CHLORIDE 20 MEQ TABCR PO STA (22:40)
[2020-05-18] MEDS ORDERED: LACTATED RINGER'S 1,000 ML IV STA (22:45)
[2020-05-18] MEDS ORDERED: ONDANSETRON INJ 2 MG/ML 2 ML VIAL IV PRN (22:52)
[2020-05-18 22:55] LABS: Magnesium 3.5 mg/dl (1.8-2.4); Phosphorus 4.7 mg/dl (2.5-4.9)
[2020-05-18] MEDS ORDERED: ACETAMINOPHEN 325 MG TAB PO PRN (23:28)
[2020-05-18] MEDS ORDERED: POTASSIUM CHLORIDE 20 MEQ/15 ML UDC PO STA (23:56)
[2020-05-18] MEDS: levETIRAcetam 250 MG TAB PO SCH (23:59)
[2020-05-19 00:48] LABS: Bacteria Urine Automated Negative (Negative); Epithelial Cell Urine Auto >30 /lpf (0-5); RBC Urine Automated 0-4 /hpf (0-4)
[2020-05-19 01:16] LABS: Uric Acid Crystals Urine Present (None Prsent)
--- NOTE | 2020-05-19 01:43 | Billing Data ---
Date of Service May 18, 2020 Coding Level of Care Code 40141 Initial Inpt Care Lvl 3
[2020-05-19 05:51] LABS: Basophils # (auto) 0.01 K/uL (0-0.2); Basophils % (auto) 0.1 %; Hematocrit (blood only) 35.7 % (42-52); Hemoglobin 12.7 g/dL (14.0-18.0); Immature Granulocytes # (auto) 0.03 K/uL (0.00-0.02); Immature Granulocytes % (auto) 0.4 %; Lymphocytes # (auto) 0.79 K/uL (1.2-3.4); Lymphocytes % (auto) 9.5 %; Mean Corpuscular Hgb Conc 35.6 g/dL (32-36); Mean Corpuscular Volume 87.1 fL (80-100); Mean Platelet Volume 9.5 fL (7.4-10.4); Monocytes # (auto) 0.48 K/uL (0.11-0.59); Monocytes % (auto) 5.8 %; Neutrophils # (auto) 7.02 K/uL (1.4-6.5); Neutrophils % (auto) 84.2 %; Platelet Count 261 K/uL (130-400); RDW Coefficient of Variation 11.8 % (11.5-14.5); RDW Standard Deviation 37.8 fL (36.4-46.3); White Blood Count 8.33 K/uL (4.8-10.8)
[2020-05-19 06:25] LABS: Albumin Level 3.8 gm/dl (3.4-5.0); BUN Creatinine Ratio 9.8 (10-20); Bilirubin Direct 0.2 mg/dl (0-0.2); Bilirubin,Total 0.6 mg/dl (0.2-1); Calcium 8.5 mg/dl (8.5-10.1); Creatinine Clr Calc Pharmacy 46.7 ml/min; Est GFR (Non-African American) 28.5; Magnesium 3.3 mg/dl (1.8-2.4); Potassium 4.8 mmol/L (3.5-5.1); Total Protein 7.5 gm/dl (6.4-8.2)
--- NOTE | 2020-05-19 06:52 | Hospitalist Progress Note ---
Date of Service May 19, 2020 Assessment & Plan (1) Seizure: 20 y/o M who presents for seizure like activity. vitals wnl. consider renal dosing keppra acute uric acid nephropathy? H/H 07/06/35.7 K 4.8 up from 3.1 [address] Cr elena 1.41 (mar)->3.580>2.99 gfr 28.5 ua no blood or protein. +uric acid. 1+ketones continue Keppra 750mg BID. Add divalproaex ER 500mg 1x/day. Per neuro, after d/c from hospital, plan is to slowly increase the divalproex while decreasing the Keppra. (2) Elevated CK: (3) Acute renal failure: (4) ADHD: (5) Depression: (6) Hypermagnesemia: Admission and Anticipated Discharge Date Admission Date: May 18, 2020 Subjective tongue still swells swollen. +uncomfortable swallowing. mild pain w/ swallowing. a little difficult to talk. sz-like episode lasted 25 minutes per his gf. one happend middle of sat night x 25min. another one was Sun am overnight x10-15 min. were similar but longer and more painful than sz earlier this time. 5-6 times on separate occasions earlier this year. during the episodes, he is not aware when it happens. the episodes occur while he is sleeping or getting out of car. gf notes he was thrashing around a lot. looks like he is awake using phone but is not. after the episodes, tongue will hurt on sides. muscles sore all over. PEARCE and fatigue. normally no n/v, room spinn, dizzi. however, last few days have had a few episodes of emesis, small amount of foodstuffs. hasn't been eating past 1.5 days, last of appetite because of tongue pain. switched from trilepta to keppra 2 wks ago because it didn't work that well (occasional sz). last sz was a month ago. this wkend went to [place], forgot his meds. missed keppra sat am/pm. neurologist in [place] where [place] is from. Emmanuel Bonds. per pt did eeg in mar and wasn't told the result. pt's first ever sz was [id number] no family hx. daily mh. no other illicit. no tobacco. occ etoh on weekends. 2 drinks on weekend night. Review of Systems Review of Systems: all ros neg currently only sx is tongue pain 02/06 Physical Exam Physical Exam: heart ok. abd ok. no LE edema. radial 2+ tongue bite cinthia front tip and R lateral. per pt, L lateral too, but hard to visualize. normal strength/sensation upper and lower extremity. normal CN 2-12 Results & Data Results & Data ([facility]) Vital Signs (Past 12 Hours) Vital Signs Temp Pulse Pulse Resp BP BP Pulse Ox 05/18/20 22:52 36.7 C 75 14 125/75 100 05/18/20 21:32 95 H 18 125/78 100 05/18/20 20:30 69 15 113/77 99 05/18/20 20:00 83 12 114/72 97 05/18/20 19:56 90 18 116/78 98 05/18/20 19:55 91 H 17 116/78 100 05/18/20 19:30 80 15 (1) Acute renal failure Acute renal failure type: unspecified Qualified Code(s): N17.9 - Acute kidney failure, unspecified
--- NOTE | 2020-05-19 08:22 | Ultrasound Report ---
RENAL ULTRASOUND CLINICAL HISTORY: Acute kidney injury. COMPARISON STUDY: None. TECHNIQUE: Sonography of the kidneys and the urinary bladder was performed. FINDINGS: The right kidney measures 11.6 x 5.3 x 6.9 cm and the left kidney measures 11 x 6.9 x 6.1 c m. Renal size is normal. Both kidneys are echogenic. There is no hydronephrosis. No renal calculus or mass is identified. Bladder wall is mildly thickened. The right ureteral jet was not visualized. The re was mobile debris within the bladder. IMPRESSION: 1. No hydronephrosis. 2. Echogenic kidneys, a nonspecific finding which suggests medical renal disease. 3. Mobile debris within the bladder which could be correlated with urinalysis. Mild bladder wall thic kening. ACT 112: Negative or not required by law. Electronically signed by: Vernon Damon M.D. 05/19/2020 8:21 AM
[2020-05-19] MEDS: levETIRAcetam 250 MG TAB PO SCH ×2 (08:50→20:26)
[2020-05-19] MEDS: MULTIVITAMIN TAB PO SCH (08:50)
--- NOTE | 2020-05-19 09:08 | Neurology Consultation ---
Date of Consultation May 19, 2020 Assessment & Plan (1) Seizure: (2) Elevated CK: (3) Contusion: (4) ADHD: (5) Acute renal failure: patient has a history of nocturnal seizures ( 1 event during the day back in February) associated with thrashing of all limbs ( presumed tonic/clonic) of varying time periods with tongue biting, occasional incontinence of urine, and feeling sore and confused after the events. The patient had a significant event early intervention specialist hours of May 18. Apparently had been noncompliant with levetiracetam 48 hours prior to the event. 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 MRI has been normal, speaking against a focal origin to these seizures. Risk factors for seizures in this patient would be his Strattera and fluoxetine ( all synthetic amphetamines and related products as well as antidepressants lower the seizure threshold ). Acute renal failure of uncertain etiology. Recommendations: 1. for now, increase levetiracetam to 1000 milligrams twice daily. 2. However, I am more interested in getting the patient on a better anticonvulsant (1 that is more efficacious and less likely to interfere with psychiatric conditions), such as lamotrigine or valproic acid. Valproic acid would be my 1st choice however I would have to clear it with Nephrology 1st. It can be given IV or p.o.. 3. If Nephrology clears valproic acid I would initiate a long-acting once daily 500 milligram dose per day, which could be increased slowly as an outpatient while the Keppra is slowly decreased over time. 4. if not cleared by Nephrology, lamotrigine is an excellent anticonvulsant with minimal side effects, however, cannot be given IV. Both of these medications can be good mood stabilizers. I would choose the long-acting ( 24 hour extended release) form of either drug so that by taking once per day it would increase compliance. 5. this patient may benefit from prolonged EEG monitoring or stay in an EMU at [place] or [place] Overall, I spent a total of 120 minutes with this case including review of records, review of MRI films, direct evaluation of the patient at bedside and discussing the case with the patient at bedside and Dr. Cooley, including differential diagnosis and treatment options. History of Present Illness Reason for Consultation: Patient is a 20-year-old, who I was asked to see at the request of Dr. Jiang, for neurologic consultation regarding seizure. Requesting Physician: Dr. Jiang Attending Physician: Tori Cooley MD History of Present Illness patient tells me that he has had a history of ADHD and OCD since early teen ye ars. He was initiated on fluoxetine around age 12 and he has been on this ever since. This helps his OCD tendencies considerably. Around age 14 he was put on Vyvanse which helped his ADHD and focusing. He has no history of significant head trauma or concussion, meningitis, or epilepsy as an or child. He states that he had "night terrors" as an infant. Patient was doing fairly well until early 2019 when he had a nocturnal seizure like event. He has been averaging 1 nocturnal seizure-like event per month. There are no specific triggers for these events that he is aware although sleep deprivation might be a trigger. He tends to drink alcohol and smoke marijuana which could conceivably be triggers as well. After August he saw a neurologist in his hometown of [facility], Dr. Emmanuel Bonds, who apparently did an MRI and EEG which were unremarkable. 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 Nevertheless he was put on try left total ultimately at a dose of 600 milligrams twice a day to prevent spells and help control mood. Patient admits to anxiety but not depression. He still had seizures once per month during the night since initiating tried up to. He had no side effects to the medication although he felt that it gave him headaches. He was not very compliant on this medication. In addition, In October of this year, he was told to discontinue his Vyvanse and initiated generic Strattera which she takes currently. Typical seizures would be after he has been sleeping for a while and he was told that he would thrash all 4 of his limbs for some variable amount of time. Most of the time he would bite his tongue but not be incontinent of urine. When he woke you would be tired and sore in his limbs. He would have a bifrontal headache. One time, in February of this year, he did not have a nocturnal seizure. He was driving his car and came, parked, got out of the car and the next thing he knew he was waking up lying down in his house with his mother telling him that he had a generalized thrashing event. He does not believe he bit his tongue or wet himself that time. In March of this year after some significant alcohol he had a event in the middle of the night . He was brought to the emergency room and admitted. An MRI of the brain without contrast was unremarkable. CT scan of the head was unremarkable. Laboratory studies that date on April 14 showed a BUN of 20 and creatinine of 1.97. CK was elevated to 334 and by discharge was normal at 187 he was initiated on levetiracetam and he was discharged on 750 milligrams twice daily and Trileptal was discontinued. He states that he has been fairly compliant on levetiracetam up until recently. Patient visited [facility] this past weekend and did not take Keppra the whole weekend. He did take the generic Strattera and fluoxetine. in the early intervention specialist hours of September 18, he apparently had a generalized psoriasis thing event with significant tongue biting. His tongue is been very swollen and he was sore in the limbs. He arrived to the emergency room at 1913 with a temperature 36.6, pulse 98, respiratory 18, blood pressure 126/83, and O2 saturation 97 percent. He was described as having exam that was nonfocal neurologically and no postictal confusion or encephalopathy. CBC showed mildly low hemoglobin hematocrit with normal white count. Chem profile showed a BUN of 29 and creatinine of 2.99. Glucose was 125 phosphorus was high at 6.0 and magnesium high at 3.3. CK was elevated at 781. no further imaging studies were done. This morning the patient feels almost completely back to normal with better energy and no other issues including no headaches. His tongue is very sore and swollen. Blood pressure is normal and is afebrile. Allergies Allergy/AdvReac Type Severity Reaction Status Date / Time No Known Allergies Allergy Verified 05/18/20 18:52 Home Medications Home Medications Medication Instructions Recorded Confirmed Type fluoxetine 30 mg PO HS 09/03/19 05/18/20 History atomoxetine 60 mg PO HS 04/14/20 05/18/20 History levetiracetam 750 mg PO BID 30 Days #60 tab 04/16/20 05/18/20 Rx multivitamin 1 tab PO DAILY 05/18/20 05/18/20 History Patient History Medical History ADHD DANIEL (acute kidney injury) Depression Seizure Surgical History No pertinent past surgical history Family History Mother No pertinent family history in first degree relatives Father Diabetes Social History Smoking Status: Never smoker Second Hand Exposure: No; Do You Dip or Chew Tobacco: No; Hx Alcohol Use: Yes Alcohol type: beer, wine, hard liquor and other Alcohol Intake Frequency Comment: Four per day on weekends Hx Substance Use: Yes Non-Prescribed Medications: Marijuana Non-Prescribed Medications Comment: vapes "dabs" (concentrated form of marijuana) Last Used Substance: Days (ago) Last Used Substance Other:: 05/17/2020 Substance Use Type Other:: see medication list Preferred Language: Polish Communication Ability: Effective Card Tender Required: No Beliefs That Will Affect Care: None Current Living Situation: Other Current Living Situation Comment: pt is a student and has two roomates current occupational status: student 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 Respiratory: no cough and no dyspnea Cardiovascular: no chest pain, no palpitations and no lightheadedness Gastrointestinal: no abdominal pain, no nausea and no vomiting Genitourinary: no dysuria and no urinary incontinence Musculoskeletal: no back pain, no neck pain, no radicular pain, no joint pain and no myalgia Integumentary: no rash and no lesions Neurologic: no gait abnormality, no localized weakness, no generalized weakness, no tingling, no numbness, no tremor(s), no abnormal movements, no headache(s), no abnormal speech, no confusion and no memory loss Psychiatric: + anxiety; no depression, no irritability, no difficulty concentrating, no confusion and no hallucinations Endocrine: no fatigue and no flushing Hematologic / Lymphatic: no easy bleeding and no easy bruising Allergy / Immunological: no urticaria and no problem reported Exam (Neuro) Physical Exam: The patient is right-handed. The patient is awake, alert, and attentive. Speech is mildly slow but otherwise normal without any aphasia or dysarthria. he can name objects, repeat phrases, and has normal spontaneous speech. Mentation and thought processes are intact, with orientation to person, place and time, and normal fund of knowledge. Attention and concentration are normal. Mood and affect are normal and appropriate. General appearance and grooming are normal. Short and long-term memory are intact. The discs are sharp with positive venous pulsations bilaterally. There are no exudates, hemorrhages, or blood vessel changes seen. Pupils are 4 mm bilaterally and reactive to light. Extraocular eye muscles are intact without nystagmus. Visual acuity and visual rodriguez seem normal grossly to confrontation. There are no deficits to sensation in the face in all 3 distributions of the fifth cranial nerve bilaterally. Corneal reflexes are positive bilaterally. Facial strength and symmetry was normal bilaterally. Hearing seems normal to whisper and finger rub bilaterally. Palate moves well without asymmetry. There is normal sternocleidomastoid and trapezius (shoulder shrug) strength bilaterally. Tongue is midline with good strength bilaterally, however, it is swollen and very erythematous underneath with signs of being bitten on the top sides ( left greater than right side). Neck has a full range of motion without discomfort. There are no cervical bruits bilaterally. There are no cranial or ocular bruits. Heart is without murmur. There is a regular rhythm and rate. Cervical, thoracic, and lumbar spine are nontender to palpation. Gait is narrow based, with good arm swing, turns, and stance. With outstretched arms there is no drift. There are no resting, postural, or action tremors. There is no ataxia with finger to nose testing. There is good facility in the hands. No other abnormal involuntary movements are noted. Motor strength is 5/5 diffusely in the arms bilaterally including deltoids, biceps, triceps, brachioradialis, wrist flexors and extensors, undraped artist model, and intrinsic hand muscles. Motor strength is 5/5 diffusely in the legs bilaterally including hip flexors, quadriceps, hamstrings, gastrocnemius, tibialis anterior, tibialis posterior, and Peroneii muscles. Toe extensors are normal and there is good bulk in the extensor digitorum brevis muscles bilaterally. The limbs have good tone without rigidity or spasticity. There is no atrophy noted in the muscles. Muscle bulk is normal, there is no tenderness to palpation, no myotonia to percussion, and no fasciculations seen. Sensory examination is intact to touch and pin throughout all 4 limbs diffusely. Reflexes are 1/4 in the biceps, triceps, brachioradialis, quadriceps, and Achilles tendons bilaterally. There is no clonus bilaterally. Toes are downgoing with plantar stimulation bilaterally. Peripheral pulses are present and of normal quality distally in all 4 limbs. There is no peripheral edema noted in the limbs. Results & Data ([facility]) Vital Signs (Past 12 Hours) Vital Signs Temp Pulse Resp BP Pulse Ox 05/19/20 08:05 37.1 C 18 128/82 100 05/18/20 22:52 36.7 C 75 14 125/75 100 05/18/20 21:32 95 H 18 125/78 100 PG Care Time/CCT Total # of Minutes Spent Total Time Spent with Patient: Total time spent is greater than 50% in coordination of care (as documented) at patient's floor/unit and/or counseling patient: Coding Level of Care Code 42653 Inpt Consult Level 5 Diagnoses Seizure R56.9 Elevated CK R74.8 Contusion S00.83XA Contusion area: head Contusion of head detail: other part of head Encounter type: initial encounter ADHD F90.9 Acute renal failure N17.9 Acute renal failure type: unspecified Time Spent (min) 120 (1) Contusion Contusion area: head Contusion of head detail: other part of head Encounter type: initial encounter Qualified Code(s): S00.83XA - Contusion of other part of head, initial encounter (2) Acute renal failure Acute renal failure type: unspecified Qualified Code(s): N17.9 - Acute kidney failure, unspecified
--- NOTE | 2020-05-19 09:49 | Electrocardiogram Report ---
Test Reason : Blood Pressure : / mmHG Vent. Rate : 084 BPM Atrial Rate : 084 BPM P-R Int : 146 ms QRS Dur : 092 ms QT Int : 394 ms P-R-T Axes : 062 051 055 degrees QTc Int : 465 ms Normal sinus rhythm Normal ECG No previous ECGs available Confirmed by Gustavo Garcia ([id number]) on 05/19/2020 9:49:28 AM Referred By: REFERRED SELF Confirmed By:Gustavo Garcia
--- NOTE | 2020-05-19 10:58 | Nephrology Consultation ---
Date of Consultation May 19, 2020 Assessment & Plan (1) Acute renal failure: * DANIEL likely due to rhabdomyolysis related to recent seizure activity * NSAID administration at the time of admission may delay renal recovery. Recommend avoiding further NSAID use * Urinalysis is negative for blood or protein. Urine microscopy is negative for casts * Renal US revealed normal size kidneys without hydronephrosis * Volume status and electrolyte balance are acceptable. No acute indication for GAMING CAGE CASHIER at this time * Will provide hydration w/ IV Normosol at 125 cc/hr * Monitor PRP, UO, CK (2) Seizure: * Valproate is metabolized predominantly by the liver. Head Turning Machine Operator does not require dose adjustment for renal impairment or ESRD on HD. The superintendent mechanical does recommend monitoring free valproate levels instead of total valproate concentrations due to decreased protein binding in the setting of renal impairment History of Present Illness Reason for Consultation: DANIEL Attending Physician: Tori Cooley MD History of Present Illness Mr. Contreras is a 20 year old white male who is seen at the request of Dr. Cooley for evaluation of DANIEL. 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 His medical history is significant for seizure disorder, ADHD, OCD and depression. He reports new onset seizures begining in Jul 2019. He has been managed w/ levetiracetam (Keppra) but has not been adherent to the prescribed regimen. Mr. Contreras has been evaluated in the [facility] ED 09/19 and 04/19 due to recurrent seizures. He denies CKD. His baseline Cr was 1.1 in August 2019. During his March hospitalization he did suffer an episode of DANIEL. Cr peaked at 1.4 but had improved to 1.4 by the time of discharge. Mr. Contreras presented to the ED 05/18/20 following a prolonged (> 30 min) seizure episode. ED evaluation revealed Cr 3.58, CK 334. Mr. Contreras had bitten his tongue during his seizure. He was given one dose IV Toradol while in the ED. Mr. Contreras denies recent h/o OTC or herbal medication use. He denies difficulty voiding, gross hematuria or foamy urine. There is no known FHx of CKD/ESRD. Neurology is considering changing from Keppra to Valproate if no renal contraindication. Allergies Allergy/AdvReac Type Severity Reaction Status Date / Time No Known Allergies Allergy Verified 05/18/20 18:52 Home Medications Home Medications Medication Instructions Recorded Confirmed Type fluoxetine 30 mg PO HS 09/03/19 05/18/20 History atomoxetine 60 mg PO HS 04/14/20 05/18/20 History levetiracetam 750 mg PO BID 30 Days #60 tab 04/16/20 05/18/20 Rx multivitamin 1 tab PO DAILY 05/18/20 05/18/20 History Patient History Medical History ADHD DANIEL (acute kidney injury) Depression Seizure Surgical History No pertinent past surgical history Family History Mother No pertinent family history in first degree relatives Father Diabetes Social History Smoking Status: Never smoker Second Hand Exposure: No; Do You Dip or Chew Tobacco: No; Hx Alcohol Use: Yes Alcohol type: beer, wine, hard liquor and other Alcohol Intake Frequency Comment: Four per day on weekends Hx Substance Use: Yes Non-Prescribed Medications: Marijuana Non-Prescribed Me dications Comment: vapes "dabs" (concentrated form of marijuana) Last Used Substance: Days (ago) Last Used Substance Other:: 05/17/2020 Substance Use Type Other:: see medication list Preferred Language: Ivorian Communication Ability: Effective Multimedia Manager Required: No Beliefs That Will Affect Care: None Current Living Situation: Other Current Living Situation Comment: pt is a student and has two roomates current occupational status: student current occupation: susu communications major at [employer] Feels Safe at Home: Yes Safety Concerns: Feels Safe At This Time Assistive Devices: None Review of Systems Constitutional: no fever Eyes: no problem reported Ear, Nose, Mouth, Throat: no problem reported Respiratory: no dyspnea Cardiovascular: no chest pain and no edema Gastrointestinal: no abdominal pain, no vomiting and no diarrhea/loose stools Genitourinary: no dysuria, no urinary hesitancy and no hematuria Musculoskeletal: no back pain Integumentary: no rash Neurologic: no dizziness and no confusion Physical Exam Constitutional: healthy appearing Eyes: PERRL, conjunctivae normal, anicteric sclerae ENMT: external ear and nose normal, oropharynx normal Neck: trachea midline, no thyromegaly Respiratory: normal respiratory effort, lungs clear to auscultation Cardiovascular: RRR, no murmur, no edema Gastrointestinal (Abdomen): normal bowel sounds, soft, nontender, no hepatosplenomegaly Musculoskeletal: Extremities: no cyanosis Skin: no rashes, warm and dry Neurologic: awake; not confused Results & Data ([facility]) Vital Signs (Past 12 Hours) Vital Signs Temp Resp BP Pulse Ox 05/19/20 08:05 37.1 C 18 128/82 100 Laboratory Results Laboratory Tests 09/03/19 04/14/20 05/18/20 19:55 20:09 18:41 WBC Hgb Hct Plt Count Sodium Potassium Chloride Carbon Dioxide BUN Creatinine 1.10 1.97 H 3.58 H Glucose Total Creatine Kinase Albumin Urine Color Urine Appearance Urine pH Ur Specific [place] Urine Protein Urine Glucose (UA) Urine Blood Urine RBC (Auto) U Marijuana (THC) Screen U Marijuana THC Carboxy 05/18/20 05/18/20 05/18/20 19:41 21:50 21:50 WBC Hgb Hct Plt Count Sodium Potassium Chloride Carbon Dioxide BUN Creatinine Glucose Total Creatine Kinase 781 H Albumin Urine Color Yellow Urine Appearance Clear Urine pH 5.0 Ur Specific [place] 1.014 Urine Protein Negative Urine Glucose (UA) Negative Urine Blood Negative Urine RBC (Auto) U Marijuana (THC) Screen Pos H U Marijuana THC Carboxy 05/18/20 05/18/20 05/19/20 21:50 21:50 05:20 WBC 8.33 Hgb 12.7 L Hct 35.7 L Plt Count 261 Sodium Potassium Chloride Carbon Dioxide BUN Creatinine Glucose Total Creatine Kinase Albumin Urine Color Urine Appearance Urine pH Ur Specific [place] Urine Protein Urine Glucose (UA) Urine Blood Urine RBC (Auto) 0-4 U Marijuana (THC) Screen U Marijuana THC Carboxy Pending 05/19/20 05:20 WBC Hgb Hct Plt Count Sodium 138 Potassium 4.8 D Chloride 108 H Carbon Dioxide 20 L BUN 29 H Creatinine 2.99 H D Glucose 125 H Total Creatine Kinase Albumin 3.8 Urine Color Urine Appearance Urine pH Ur Specific [place] Urine Protein Urine Glucose (UA) Urine Blood Urine RBC (Auto) U Marijuana (THC) Screen U Marijuana THC Carboxy PG Care Time/CCT Total # of Minutes Spent Total Time Spent with Patient: Total time spent is greater than 50% in coordination of care (as documented) at patient's floor/unit and/or counseling p atient: Coding Level of Care Code 50536 Inpt Consult Level 5 Diagnoses Acute renal failure N17.9 Acute renal failure type: unspecified Seizure R56.9 (1) Acute renal failure Acute renal failure type: unspecified Qualified Code(s): N17.9 - Acute kidney failure, unspecified
[2020-05-19] MEDS: NORMOSOL-R 1,000 ML IV SCH ×2 (12:36→20:26)
--- NOTE | 2020-05-19 13:01 | Medical Student Progress Note ---
Date of Service May 19, 2020 Assessment & Plan (1) Acute renal failure: * DANIEL likely due to rhabdomyolysis related to recent seizure activity * NSAID administration at the time of admission may delay renal recovery. Recommend avoiding further NSAID use * Urinalysis is negative for blood or protein. Urine microscopy is negative for casts * Renal US revealed normal size kidneys without hydronephrosis * Will provide hydration w/ IV Normosol at 125 cc/hr * Monitor BMP & CK. Both trending towards normal baseline. Acute renal failure type: unspecified Qualified Code(s): N17.9 - Acute kidney failure, unspecified (2) Seizure: * Plan to switch to valproate with a taper as an outpatient. Valproate is metabolized predominantly by the liver & there is no concern from a renal standpoint. Admission and Anticipated Discharge Date Admission Date: May 18, 2020. Anticipate that Jimmy will be ready to leave tomorrow. Supervising Attestation Medical Student Supervision Note: I was personally present during medical student patient encounter and independently interviewed and examined the patient and verified the guan history and physical, reviewed labs and image studies, discussed the case with Lilli Stone and agree with the findings and care plan. Patient with h/o seizure who is set up to have extended EMG - didn't take his meds over the wkend and presented to ED after seizure. He is also on seizure threshold lowering meds - prozac and strettera -no further seizure -evaluated by neuro - would like to wean off keppra and start depakote. DANIEL sec to seizure -IV hydration and follow bmp Subjective Jimmy is subjectively doing well with no new symptoms to report. The neurology team saw Jimmy and discussed a plan to change seizure medications from kepra to valproate as it is less sedating & only needs to be taken once a day. This switch was started this morning and can be finished outpatient. Nephrology saw Jimmy this morning regarding DANIEL which appears to be 2/2 rhabdomyolysis as a consequence of seizure activity. Nephrology suggests continuing fluids for the next 24 hours. Creatinine is downtrending appropriately. Review of Systems Review of Systems: all ros neg currently only sx is tongue pain 7/10 Ear, Nose, Mouth, Throat: swollen and bruised tongue with evidence of being previously bitten. Psychiatric: + anxiety; no depression, no irritability, no difficulty concentrating, no confusion and no hallucinations Physical Exam Constitutional: healthy appearing Eyes: PERRL, conjunctivae normal, anicteric sclerae ENMT: external ear and nose normal, oropharynx normal Neck: trachea midline, no thyromegaly Respiratory: normal respiratory effort, lungs clear to auscultation Cardiovascular: RRR, no murmur, no edema Gastrointestinal (Abdomen): normal bowel sounds, soft, nontender, no hepat osplenomegaly Musculoskeletal: no cyanosis or clubbing, extremities motor strength 5/5 Extremities: no cyanosis Skin: no rashes, warm and dry Neurologic: patellar DTR's 2+ bilat, sensation intact and PERRL, EOMI, accommodation nl, no face palsy, no dysarthria normal touch/pain/pr oprioception, CN's II-XI intact bilaterally, deep tendon reflexes 2+ bilaterally, moves all extremities and awake; no focal motor deficits and not confused Motor/Sensory: no tremor Psychiatric: A+Ox3, euthymic affect Results & Data ([facility]) Vital Signs (Past 12 Hours) Vital Signs Temp Resp BP Pulse Ox 05/19/20 08:05 37.1 C 18 128/82 100
[2020-05-19 16:04] LABS: BUN Creatinine Ratio 11.1 (10-20); Calcium 8.7 mg/dl (8.5-10.1); Creatinine Clr Calc Pharmacy 55.4 ml/min; Est GFR (African American) 40.6; Potassium 3.4 mmol/L (3.5-5.1)
[2020-05-19] MEDS ORDERED: DIVALPROEX EXTENDED RELEASE 500 MG TAB PO ONE (17:58)
[2020-05-19] MEDS ORDERED: ATOMOXETINE HCL 60 MG CAPSULE PO SCH (21:00)
[2020-05-19] MEDS ORDERED: FLUoxetine HCL 10 MG CAP PO SCH (21:00)
[2020-05-19] MEDS ORDERED: ATOMOXETINE HCL 40 MG CAPSULE PO ONE (22:45)
[2020-05-19] MEDS ORDERED: ATOMOXETINE HCL 10 MG CAPSULE PO ONE (22:45)
[2020-05-20 06:35] LABS: Basophils # (auto) 0.01 K/uL (0-0.2); Basophils % (auto) 0.1 %; Eosinophils # (auto) 0.14 K/uL (0-0.5); Eosinophils % (auto) 1.9 %; Hematocrit (blood only) 32.6 % (42-52); Hemoglobin 11.4 g/dL (14.0-18.0); Immature Granulocytes # (auto) 0.02 K/uL (0.00-0.02); Immature Granulocytes % (auto) 0.3 %; Lymphocytes % (auto) 24.9 %; Mean Corpuscular Hemoglobin 30.6 pg (25-34); Mean Corpuscular Volume 87.4 fL (80-100); Mean Platelet Volume 9.9 fL (7.4-10.4); Monocytes # (auto) 0.82 K/uL (0.11-0.59); Monocytes % (auto) 11.3 %; Neutrophils # (auto) 4.45 K/uL (1.4-6.5); Neutrophils % (auto) 61.5 %; Platelet Count 217 K/uL (130-400); Red Blood Count 3.73 M/uL (4.7-6.1); White Blood Count 7.24 K/uL (4.8-10.8)
[2020-05-20 07:04] LABS: BUN Creatinine Ratio 11.3 (10-20); Calcium 8.2 mg/dl (8.5-10.1); Creatinine Clr Calc Pharmacy 73.5 ml/min; Est GFR (African American) 57.1; Est GFR (Non-African American) 49.3; Potassium 3.4 mmol/L (3.5-5.1)
[2020-05-20] MEDS: MULTIVITAMIN TAB PO SCH (09:46)
[2020-05-20] MEDS: levETIRAcetam 250 MG TAB PO SCH (09:46)
--- NOTE | 2020-05-20 10:47 | Nephrology Progress Note ---
Date of Service May 20, 2020 Assessment & Plan (1) Acute renal failure: * DANIEL likely due to rhabdomyolysis related to recent seizure activity * NSAID administration at the time of admission may delay renal recovery. Recommend avoiding further NSAID use * Urinalysis is negative for blood or protein. Urine microscopy is negative for casts * Renal US revealed normal size kidneys without hydronephrosis * Volume status and electrolyte balance are acceptable. No acute indication for CATH LAB TECHNOLOGIST at this time * 1 L IV Normosol completed. Renal function and CPK improved. Encourage oral hydration * Monitor PRP, UO, CK (2) Seizure: * Valproate is metabolized predominantly by the liver. Patroller does not require dose adjustment for renal impairment or ESRD on HD. The parts lister does recommend monitoring free valproate levels instead of total valproate concentrations due to decreased protein binding in the setting of renal impairment Admission and Anticipated Discharge Date Admission Date: May 18, 2020 Subjective Mr. Contreras was seen & examined in his hospital room this morning. His mother was present during my evaluation. Mr. Contreras reports good oral hydration and brisk UO. Review of Systems Constitutional: no fever Eyes: no problem reported Ear, Nose, Mouth, Throat: no problem reported Respiratory: no dyspnea Cardiovascular: no chest pain and no edema Gastrointestinal: no abdominal pain, no vomiting and no diarrhea/loose stools Genitourinary: no dysuria, no urinary hesitancy and no hematuria Musculoskeletal: no back pain Integumentary: no rash Neurologic: no dizziness and no confusion Physical Exam Constitutional: healthy appearing; not in distress Eyes: PERRL, conjunctivae normal, anicteric sclerae ENMT: external ear and nose normal, oropharynx normal Neck: trachea midline, no thyromegaly Respiratory: normal respiratory effort, lungs clear to auscultation Cardiovascular: RRR, no murmur, no edema Gastrointestinal (Abdomen): normal bowel sounds, soft, nontender, no hepatosplenomegaly Musculoskeletal: Extremities: no cyanosis Skin: no rashes, warm and dry Neurologic: awake; not confused Results & Data ([facility]) Vital Signs (Past 12 Hours) Vital Signs Temp Pulse Resp BP Pulse Ox 05/20/20 08:32 36.9 C 65 18 111/72 100 05/19/20 23:34 37.0 C 88 16 131/74 100 Laboratory Results Laboratory Tests 05/18/20 05/18/20 05/20/20 21:50 21:50 05:10 WBC Hgb Hct Plt Count Sodium 139 Potassium 3.4 L Chloride 108 H Carbon Dioxide 24 BUN 21 H Creatinine 1.90 H D Glucose 93 Total Creatine Kinase 328 H Urine Color Yellow Urine Appearance Clear Urine pH 5.0 Ur Specific [place] 1.014 Urine Protein Negative Urine Glucose (UA) Negative Urine Blood Negative Urine RBC (Auto) 0-4 05/20/20 05:10 WBC 7.24 Hgb 11.4 L Hct 32.6 L Plt Count 217 Sodium Potassium Chloride Carbon Dioxide BUN Creatinine Glucose Total Creatine Kinase Urine Color Urine Appearance Urine pH Ur Specific [place] Urine Protein Urine Glucose (UA) Urine Blood Urine RBC (Auto) PG Care Time/CCT Total # of Minutes Spent Total Time Spent with Patient: Total time spent is greater than 50% in coordination of care (as documented) at patient's floor/unit and/or counseling patient: Coding Level of Care Code 00108 Subseq Hosp Care Lvl 3 Diagnoses Acute renal failure N17.9 Acute renal failure type: unspecified Seizure R56.9 (1) Acute renal failure Acute renal failure type: unspecified Qualified Code(s): N17.9 - Acute kidney failure, unspecified
[2020-05-20] MEDS ORDERED: INFLUENZA VIRUS QUAD VACCINE 0.5 ML SYR IM ONE (11:09)
[2020-05-20] MEDS ORDERED: INFLUENZA ADMINISTRATION CHARGE ONE (11:09)
--- NOTE | 2020-05-20 11:14 | Neurology Progress Note ---
Date of Service May 20, 2020 Assessment & Plan (1) Seizure: (2) Elevated CK: (3) Contusion: (4) ADHD: (5) Acute renal failure: patient has a history of nocturnal seizures ( 1 event during the day back in February) associated with thrashing of all limbs ( presumed tonic/clonic) of varying time periods with tongue biting, occasional incontinence of urine, and feeling sore and confused after the events. 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 Apparently had been noncompliant with levetiracetam 48 hours prior to the event. 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 MRI has been normal, speaking against a focal origin to these seizures. Risk factors for seizures in this patient would be his Strattera and fluoxetine ( all synthetic amphetamines and related products as well as antidepressants lower the seizure threshold ). Clinically I suspect a generalized epilepsy however his medications can lower seizure threshold. Acute renal failure of uncertain etiology. Recommendations: 1. For now, continue levetiracetam to 1000 milligrams twice daily. 2. continue long-acting 24 hour Depakote 500 milligrams a day. 3. As an outpatient he can be titrated and converted over to Depakote alone. 4. At this point, I am not certain the patient needs a prolonged EEG monitoring or stay in an EMU at [place] or [place], but this could be discussed at a later date. Overall, I spent a total of 40 minutes with this case including review of records, direct evaluation of the patient at bedside and discussion of the case with the patient at bedside , both parents at bedside, and Dr. Cooley, including differential diagnosis and treatment options. Admission and Anticipated Discharge Date Admission Date: May 18, 2020 Subjective Patient has had no further seizures since in the hospital. He feels well with no symptoms. Blood pressure is 111/72 and he is started on valproic acid 500 milligrams once daily. Patient's parents were at bedside and we had a lengthy discussion regarding his case including diagnosis and treatment. Results & Data ([facility]) Vital Signs (Past 12 Hours) Vital Signs Temp Pulse Resp BP Pulse Ox 05/20/20 08:32 36.9 C 65 18 111/72 100 05/19/20 23:34 37.0 C 88 16 131/74 100 Exam (Neuro) Physical Exam: He is sitting up in bed well with symmetrical strength. Extraocular eye muscles are intact without nystagmus. He has no abnormal involuntary movements. Speech is normal. PG Care Time/CCT Total # of Minutes Spent Total Time Spent with Patient: Total time spent is greater than 50% in coordination of care (as documented) at patient's floor/unit and/or counseling patient: Coding Level of Care Code 79361 Subseq Hosp Care Lvl 3 Diagnoses Seizure R56.9 Elevated CK R74.8 Contusion S00.83XA Contusion area: head Contusion of head detail: other part of head Encounter type: initial encounter ADHD F90.9 Acute renal failure N17.9 Acute renal failure type: unspecified Time Spent (min) 40 (1) Contusion Contusion area: head Contusion of head detail: other part of head Encounter type: initial encounter Qualified Code(s): S00.83XA - Contusion of other part of head, initial encounter (2) Acute renal failure Acute renal failure type: unspecified Qualified Code(s): N17.9 - Acute kidney failure, unspecified
--- NOTE | 2020-05-20 11:30 | Discharge Summary ---
Date of Service May 20, 2020 Admission HPI Per Admitting Provider Mr. Contreras is a 20 yo male with h/o unspecified seizure disorder who presented to [facility] ED on 05/18 for a swollen tongue and difficulty swallowing 2/2 tongue- bite due to generalized seizure. Patient's mother is in the room with him and provided most of the history. Per mother, the patient was taking Trileptal from 09/2019-03/2020 for unspecified seizure disorder but was intermittently non- compliant due to headaches and mood changes, and he was admitted at [facility] in 03/2020 for three days due to breakthrough seizures (2 events in one day). Saw Dr. Samaniego (Neuro) during that hospitalization and Trileptal was changed to Keppra 750 mg PO BID for increased compliance and to avoid side effects. Was also found to have elevated Cr 1.97 (with <10:1 BUN:Cr) and mildly elevated CK of 334 - DANIEL was thought to be 2/2 rhabdo due to seizures and greatly improved during hospitalization. Patient was fully compliant with Keppra until this past weekend when he forgot the medication on a roadtrip for his birthday weekend. Patient also reports having 3 drinks during the weekend celebrations as well as some MJ but denies other alcohol or drug use. On Monday afternoon (05/17) the patient reportedly had seizure in the car - 15 minutes of bilateral flexed arm shaking followed by 20 minutes of leg shaking; patient was reportedly unresponsive during this time and severely bit his tongue but no loss of continence - unknown if eyes were opened or closed during the event. Patient reports that he does not remember this event. Patient fell asleep after 35 minutes of seizing and woke up after several hours, just as he and his girlfriend were arriving in [employer]. He was taken to [facility] ED and was re-started on Keppra. After discharge from ED, he was taken to his girlfriend's apartment and reportedly slept soundly without other seizure events. Throughout the day today he remained in a post-ictal state - fatigued, slow movements, slow speech, and difficulty eating due to swollen tongue. No further seizure events. In the ED, patient received Decadron 10 IV x1 for tongue swelling, Toradol 30 IV x1 for tongue pain, NSS 1L for dehydration and Zofran 4mg IV x1 for nausea. PMHx: Seizures: reportedly started 1 year ago with girlfriend noticing that he "shakes" in bed in the middle of the night, then had 2 seizures during the day which prompted full neuro eval with negative CT/MRI and 3-day EEG without epileptiform activity. Seizures usually have similar character to the most recent seizure described above. Remainder of seizure history descirbed in HPI. 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 Smokes MJ almost every day. Drinks socially - several shots per week. Denies other drug use. Admission Exam (Per Admitting) Constitutional healthy appearing Eyes PERRL, conjunctivae normal, anicteric sclerae ENMT external ear and nose normal, oropharynx normal Neck trachea midline, no thyromegaly Respiratory normal respiratory effort, lungs clear to auscultation Cardiovascular RRR, no murmur, no edema Gastrointestinal (Abdomen) normal bowel sounds, soft, nontender, no hepatosplenomegaly Musculoskeletal no cyanosis or clubbing, extremities motor strength 5/5 Extremities: no cyanosis Skin no rashes, warm and dry Neurologic patellar DTR's 2+ bilat, sensation intact and PERRL, EOMI, accommodation nl, no face palsy, no dysarthria normal touch/pain/proprioception, CN's II-XI intact bilaterally, deep tendon reflexes 2+ bilaterally, moves all extremities and awake; no focal motor deficits and not confused Motor/Sensory: no tremor Psychiatric A+Ox3, euthymic affect Discharge Data Consultations 05/18/20 21:11 ED Decision to Admit Stat 05/18/20 22:52 Consult Nephrology Routine Consult Neurology Routine Hospital Course (1) Acute renal failure: * Patient presented with DANIEL with a Cr of 2.99 and BUN of 29 as well as a CK of 781. DANIEL was likely due to rhabdomyolysis related to recent seizure activity * NSAID administration at the time of admission may have delayed renal recovery. Recommend avoiding further NSAID use. * Renal US revealed normal size kidneys without hydronephrosis * Hydration was provided w/ IV Normosol at 125 cc/hr * BMP & CK were monitored and trended back towards baseline (BUN 21, Cr 1.9, CK 328.) (2) Seizure: * Patient presented with seizure-like activity after missing several doses of Keppra over a weekend * Neurology was consulted and recommended Keppra was increase from 750 mg daily to 1000 mg. Valproate was added at 500 mg once daily. * Plan to switch to valproate with a taper as an outpatient. Valproate is a once a day medication which may help compliance. It is also less sedating. * Plan to follow up with Dr. Ornelas or Dr. Samaniego as an outpatient Discharge Instructions 1. For now, continue levetiracetam to 1000 milligrams twice daily. 2. continue long-acting 24 hour Depakote 500 milligrams a day. 3. As an outpatient he can be titrated and converted over to Depakote alone. Follow up with Dr. Ornelas or Dr. Samaniego. It is appropriate to use the online portal to communicate, no need for in person appointments. 4. At this point, Dr. Ornelas is not certain the patient needs a prolonged EEG mo nitoring or stay in an EMU at [place] or [place], but this could be discussed at a later date. 5. Follow up with [facility] to check on kidney function through blood work. 6. Continue to eat soft food until tongue is less swollen and sore. Supervising Physician Co-Signing Physician Notes Medical Student Supervision Note: I was personally present during medical student patient encounter and independently interviewed and examined the patient and verified the guan history and physical, reviewed labs and image studies, discussed the case with Lilli Stone and agree with the findings and care plan.
[2020-05-20] MEDS ORDERED: DIVALPROEX EXTENDED RELEASE 500 MG TAB PO ONE (18:00)
[2020-05-20] MEDS ORDERED: ATOMOXETINE HCL 10 MG CAPSULE PO SCH (21:00)
[2020-05-20] MEDS ORDERED: ATOMOXETINE HCL 40 MG CAPSULE PO SCH (21:00)
[2020-05-21 02:52] LABS: Marijuana Quant, GCMS Urine 484 ng/mL (<5)
[2020-05-23 00:04] LABS: CK Total 439 U/L (44-196); CK-MB 0 % (<5); CK-MM 100 % (95-100)
== END 2020-05-20 16:07 | disposition home or self-care (01) | DRG 101 ==
LOC: ED 17:59 → SUATTDRO 21:50 → 3E 21:50 → UNDODISIN 05-20 12:13